=== PATIENT | female | born 1940 | race Caucasian/White ===

== ENCOUNTER 2016-12-06 08:00 | Outpatient (CLI) | payer MEDICARE, OTHER | END 2016-12-06 08:01 | disposition home or self-care (01) | DX: M85.88 Other specified disorders of bone density and structure, other site (principal); Z79.899 Other long term (current) drug therapy; Z79.52 Long term (current) use of systemic steroids ==

== ENCOUNTER 2016-12-06 08:03 | Outpatient (CLI) | payer MEDICARE, OTHER | END 2016-12-06 08:04 | disposition home or self-care (01) | DX: Z12.31 Encounter for screening mammogram for malignant neoplasm of breast (principal); Z80.3 Family history of malignant neoplasm of breast ==

== ENCOUNTER 2017-03-20 12:41 | Outpatient (CLI) | payer MEDICARE, OTHER | END 2017-03-20 12:42 | disposition home or self-care (01) | DX: M25.519 Pain in unspecified shoulder (principal); M06.4 Inflammatory polyarthropathy ==

== ENCOUNTER 2017-04-05 07:39 | Outpatient (CLI) | payer MEDICARE, OTHER ==
--- NOTE | 2017-04-05 11:35 | MRI Report ---
EXAM: LEFT SHOULDER MRI WITHOUT CONTRAST EXAM DATE: 04/05/2017 09:07 AM. CLINICAL HISTORY: Chronic left shoulder pain. Decreased range of motion. COMPARISON: None. TECHNIQUE: Multiplanar, multisequence T1-weighted and fluid-sensitive sequences of the shoulder witho ut contrast. Other: None. FINDINGS: Acromioclavicular Region: The acromion is type I. Mild acromioclavicular joint osteoarthritis. The co racoacromial and coracoclavicular ligaments are intact. Small amount fluid at the subacromial/subdelt oid bursa. Glenohumeral Region: No subluxation. No effusion or loose bodies. The articular cartilage is unremark able. The glenohumeral ligaments and joint capsule are unremarkable. Bone Marrow: No fracture, marrow edema or bone lesions. Labrum: There is a probable sub-labral foramen variant at the anterosuperior aspect of the labrum. Ot herwise, labrum is grossly unremarkable on this non-arthrographic exam. Musculature/Rotator Cuff: There is tendinosis at the anterior distal aspect of the supraspinatus tend on. The infraspinatus, teres minor, and subscapularis tendons are normal. No discrete rotator cuff te ar. No edema or fatty atrophy. Biceps Tendon: The long head of the biceps tendon and biceps fozia are intact. Other: The subcutaneous tissues are unremarkable. IMPRESSION: 1. Mild acromioclavicular joint osteoarthritis. Small amount of fluid at the subacromial/subdeltoid b ursa. 2. Supraspinatus tendinosis. No discrete rotator cuff tear. [facility]CUL[facility] SECTION Referring Provider Line: [phone] SITE ID: [id number]
--- NOTE | 2017-04-05 12:13 | MRI Report ---
EXAM: RIGHT SHOULDER MRI WITHOUT CONTRAST EXAM DATE: 04/05/2017 08:42 AM. CLINICAL HISTORY: Bilateral shoulder pain since 2008. COMPARISON: 03/20/2017 radiograph. TECHNIQUE: Multiplanar, multisequence T1-weighted and fluid-sensitive sequences of the shoulder witho ut contrast. Other: None. FINDINGS: Acromioclavicular Region: The acromion is type II. Mild acromioclavicular osteoarthropathy is present . The coracoacromial and coracoclavicular ligaments are intact. A mild amount of fluid is in the suba cromial/subdeltoid bursa. Glenohumeral Region: No subluxation. No effusion or loose bodies. The articular cartilage is unremark able. The glenohumeral ligaments and joint capsule are unremarkable. Bone Marrow: No fracture, marrow edema or bone lesions. Labrum: The labrum is unremarkable on this nonarthrographic study. Musculature/Rotator Cuff: The subscapularis, infraspinatus, and teres minor tendons are intact. There is mild supraspinatus tendinosis. No edema or fatty atrophy. Biceps Tendon: The long head of the biceps tendon and biceps fozia are intact. Other: The subcutaneous tissues are unremarkable. IMPRESSION: 1. Mild acromioclavicular osteoarthropathy. 2. Mild subacromial/subdeltoid bursitis. 3. Mild supraspinatus tendinosis. [facility]CULOSKE[facility] SECTION Referring Provider Line: [phone] SITE ID: [id number]
== END 2017-04-05 07:40 | disposition home or self-care (01) ==
LOC: DI 07:39
PROVIDERS: ATTEND Internal Medicine Rheumatology
DX: M19.012 Primary osteoarthritis, left shoulder (principal); M19.011 Primary osteoarthritis, right shoulder; M75.51 Bursitis of right shoulder; M67.911 Unspecified disorder of synovium and tendon, right shoulder; M67.912 Unspecified disorder of synovium and tendon, left shoulder

== ENCOUNTER 2017-05-09 09:50 | Outpatient (CLI) | payer MEDICARE, OTHER | END 2017-05-09 09:51 | disposition home or self-care (01) | LOC: LAB.R 09:50 | PROVIDERS: ATTEND Internal Medicine | DX: N39.0 Urinary tract infection, site not specified (principal); R82.5 Elevated urine levels of drugs, medicaments and biological substances; R30.0 Dysuria | CPT/HCPCS: 87077; 87086 ==

== ENCOUNTER 2017-05-21 16:00 | Outpatient (CLI) | payer MEDICARE, OTHER | END 2017-05-21 23:59 | disposition home or self-care (01) | LOC: LAB.R 16:00 | PROVIDERS: ATTEND Nurse Practitioner Primary Care | DX: N39.0 Urinary tract infection, site not specified (principal) | CPT/HCPCS: 87086 ==

== ENCOUNTER 2017-05-24 08:00 | Outpatient (CLI) | payer MEDICARE, OTHER | END 2017-05-24 08:01 | disposition home or self-care (01) | LOC: LAB.R 08:00 | PROVIDERS: ATTEND Nurse Practitioner Primary Care | DX: N39.0 Urinary tract infection, site not specified (principal) | CPT/HCPCS: 87077; 87086 ==

== ENCOUNTER 2017-06-03 14:37 | Outpatient (CLI) | payer MEDICARE, OTHER | END 2017-06-03 14:38 | disposition home or self-care (01) | LOC: LAB 14:37 | PROVIDERS: ATTEND Internal Medicine | DX: N39.0 Urinary tract infection, site not specified (principal) | CPT/HCPCS: 87086 ==

== ENCOUNTER 2017-06-11 09:45 | Outpatient (CLI) | payer MEDICARE, OTHER ==
[2017-06-11 18:14] LABS: BILIRUBIN,URINE NEGATIVE (NEGATIVE)
[2017-06-11 18:16] LABS: UA CHARGE (STRIP ONLY) YES; UR CULTURE IF IND NOT INDICATED
[2017-06-11 18:17] LABS: BASOPHILS % (AUTO) 0.4 %; EOSINOPHILS % (AUTO) 0.4 %; HCT - HEMATOCRIT 34.7 % (37.0-47.0); HGB - HEMOGLOBIN 11.6 g/dL (12.0-16.0); LYMPHOCYTES # (AUTO) 0.7 10^3/uL (1.5-3.5); LYMPHOCYTES % (AUTO) 8.8 %; MEAN CORPUSCULAR HEMOGLOBIN 32.8 pg (27.0-31.0); MEAN CORPUSCULAR HGB CONC 33.5 g/dL (32.0-36.0); MEAN PLATELET VOLUME 7.9 fL (7.9-10.8); MONOCYTES # (AUTO) 0.3 10^3/uL (0.0-1.0); MONOCYTES % (AUTO) 4.1 %; NEUTROPHILS # (AUTO) 6.9 10^3/uL (1.5-6.6); NEUTROPHILS % (AUTO) 86.3 %; RED BLOOD COUNT 3.54 10^6/uL (4.20-5.40); RED CELL DISTRIBUTION WIDTH 14.4 % (12.0-15.0)
[2017-06-11 18:18] LABS: ALBUMIN/GLOBULIN RATIO 1.6 (1.0-2.2); BILIRUBIN,TOTAL 0.4 mg/dL (0.2-1.0); BUN - BLOOD UREA NITROGEN 19 mg/dL (6-20); CALCIUM 9.3 mg/dL (8.5-10.3); CARBON DIOXIDE - CO2 28 mmol/L (21-32); CHLORIDE 103 mmol/L (101-111); CREATININE 0.7 mg/dL (0.4-1.0); GFR - MDRD 82 (>89); GLUCOSE 119 mg/dL (70-100); POTASSIUM 3.8 mmol/L (3.5-5.0); SODIUM 138 mmol/L (135-145); TOTAL PROTEIN 7.1 g/dL (6.7-8.2)
== END 2017-06-11 09:46 | disposition home or self-care (01) ==
LOC: LAB.R 09:45
PROVIDERS: ATTEND Nurse Practitioner Primary Care
DX: N39.0 Urinary tract infection, site not specified (principal); M06.4 Inflammatory polyarthropathy
CPT/HCPCS: 80053; 81001; 81003; 85025; 85651; 86140; 87086

== ENCOUNTER 2017-07-09 16:55 | Outpatient (CLI) | payer MEDICARE, OTHER ==
--- NOTE | 2017-07-10 10:06 | XRAY Report ---
THREE-VIEW RIGHT KNEE: 07/09/2017 CLINICAL INDICATION: Pain. FINDINGS: AP, lateral, sunrise views of the right knee demonstrate minimal osteoarthritis, with smal l osteophytes. There is no evidence of fracture or dislocation. No effusion is present. IMPRESSION: MINIMAL OSTEOARTHRITIS. JOB #: [id number] EXT JOB #:[id number]
== END 2017-07-09 16:56 | disposition home or self-care (01) ==
LOC: DI 16:55
PROVIDERS: ATTEND Internal Medicine
DX: M25.561 Pain in right knee (principal)

== ENCOUNTER 2017-07-25 08:00 | Outpatient (CLI) | payer MEDICARE, OTHER | END 2017-07-25 23:59 | disposition home or self-care (01) | LOC: LAB.R 08:00 | PROVIDERS: ATTEND Registered Nurse | DX: N32.81 Overactive bladder (principal); R82.99 Other abnormal findings in urine | CPT/HCPCS: 87086 ==

== ENCOUNTER 2017-08-16 18:29 | Emergency (ER) | payer MEDICARE, OTHER ==
--- NOTE | 2017-08-16 19:38 | ED Physician Documentation ---
PD HPI LOWER EXT INJURY - Stated complaint Stated Complaint: LEG PX - Chief complaint Chief Complaint: Ext Problem - History obtained from History obtained from: Patient - History of Present Illness PD HPI LOW EXT INJURY LOCATION: Right, Calf Type of injury: No: Fall, Twist Timing - onset: How many days ago (2) Timing - duration: Days (2) Timing - details: Gradual onset, Still present Worsened by: Moving, Palpating Associated symptoms: No: Weakness, Numbness, Swelling, Discolored Similar symptoms before: Has not had sx before Recently seen: Not recently seen Review of Systems Constitutional: denies: Fever, Chills Skin: denies: Rash, Lesions Neurologic: denies: Focal weakness, Numbness PD PAST MEDICAL HISTORY - Past Medical History Past Medical History: Yes Cardiovascular: Other Respiratory: None Endocrine/Autoimmune: HyPOthyroidism GI: None : Other HEENT: None Psych: None Musculoskeletal: Osteoarthritis Derm: None Other Past Medical History: microscopic colitis, heel spurs - Past Surgical History Past Surgical History: Yes General: Appendectomy /[employer]: Hysterectomy HEENT: Cataracts - Present Medications Home Medications: Ambulatory Orders Medication Instructions Recorded Confirmed Estradiol 0.5 mg PO DAILY 05/22/16 08/16/17 Levothyroxine [Synthroid] 75 mcg PO QDAC 05/22/16 08/16/17 Nitrofurantoin [Macrodantin] 50 mg PO DAILY 05/22/16 08/16/17 Prednisone 3 mg PO DAILY 05/22/16 08/16/17 Sulfasalazine [Sulfazine] 1,500 mg PO BID 05/22/16 08/16/17 Oxybutynin [Ditropan] 5 mg PO BID 08/16/17 08/16/17 - Allergies Allergies/Adverse Reactions: Allergies Allergy/AdvReac Type Severity Reaction Status Date / Time codeine Allergy Nausea Verified 08/16/17 18:38 metoclopramide HCl * Allergy Nausea Verified 08/16/17 18:38 [From Reglan] prochlorperazine Allergy Nausea Verified 08/16/17 18:38 [From Compazine] prochlorperazine edisylate * Allergy Nausea Verified 08/16/17 18:38 [From Compazine] prochlorperazine maleate * Allergy Nausea Verified 08/16/17 18:38 [From Compazine] Sugars, Metabolically Active AdvReac Headache Verified 08/16/17 18:38 - Social History Does the pt smoke?: No Smoking Status: Never smoker Does the pt drink ETOH?: No Does the pt have substance abuse?: No - Immunizations Immunizations are current?: Yes PD ED PE NORMAL - Vitals Vital signs reviewed: Yes - General General: Alert and oriented X 3, No acute distress, Well developed/nourished - Cardiac Cardiac: No murmur - Respiratory Respiratory: No respiratory distress, Clear bilaterally - Derm Derm: Normal color, Warm and dry, No rash - Extremities Extremities: No edema, Other (right upper calf with tender spot focally without swelling. Not tender at the surface. ) - Neuro Neuro: No motor deficit, No sensory deficit Results - Vitals Vitals: Oxygen O2 Source Room air - Rads (name of study) duplex venous Radiology: Prelim report reviewed (negative for DVT) PD MEDICAL DECISION MAKING - ED course Complexity details: reviewed results, considered differential, d/w patient Departure - Departure Disposition: 01 Home, Self Care Clinical Impression: Pain of right calf Clinical Impression: (Ruled Out): Deep vein thrombosis Condition: Stable Record reviewed to determine appropriate education?: Yes Follow-Up: Gage Menjivar MD [Primary Care Provider] - Comments: The ultrasound does not show any signs of blood clots (DVT). They do see a small pocket of free fluid upper calf/ lower right knee, which could be consistent with a small area of blood or could also come from a small cyst breaking open (Snyder's cyst). These would both hurt back calf for a few days with slow improvement over that time. Tylenol or Ibuprofen as needed for pains. Activity as able based on comfort. Discharge Date/Time: 08/16/17 21:50
[2017-08-16] MEDS ORDERED: ACETAMINOPHEN 325 MG TABLET PO STA (20:29)
[2017-08-16] MEDS ORDERED: ACETAMINOPHEN 325 MG TABLET PO ONE (20:41)
[2017-08-16 21:30] VITALS: BP 156/75
[2017-08-16] MEDS ORDERED: HYDROcod/ACET 5/325 Prepack 6 PO ONE ×2 (21:40→21:51)
--- NOTE | 2017-08-16 21:45 | Ultrasound Preliminary Report ---
Exam: US DUPLEX EXT VEINS RIGHT IMPRESSION: Negative for deep venous thrombosis in the right lower extremity. [facility] SITE ID: [id number]
--- NOTE | 2017-08-16 21:47 | Ultrasound Report ---
EXAM: RIGHT LOWER EXTREMITY VENOUS ULTRASOUND EXAM DATE: 08/16/2017 09:32 PM. CLINICAL HISTORY: Right calf pain with walking for few days. COMPARISON: None. TECHNIQUE: Real-time sonographic vascular imaging was performed by the cleaning porter through the lower extremity utilizing both color-flow and Doppler spectral analysis. Multiple telephone service representative static siddharth ges were saved for review. FINDINGS: Common Femoral Vein (CFV): Normal. CFV-GSV Junction: Normal. Profunda Femoral Vein (PFV): Normal. Femoral Vein (FV) Prox: Normal. Femoral Vein (FV) Mid: Normal. Femoral Vein (FV) Dist: Normal. Popliteal Vein: Normal. Posterior Tibial Veins: Not well seen. No thrombus. Peroneal Veins: No thrombus. Not well seen. Other: None. IMPRESSION: Negative for deep venous thrombosis in the right lower extremity. [facility] Referring Provider Line: [phone] SITE ID: [id number]
== END 2017-08-16 21:50 | disposition home or self-care (01) ==
LOC: ED 18:29
DX: M79.661 Pain in right lower leg (principal); E03.9 Hypothyroidism, unspecified
CPT/HCPCS: 93971; 99283; A9270

== ENCOUNTER 2017-08-30 11:30 | Outpatient (CLI) | payer MEDICARE, OTHER ==
[2017-08-30 12:11] LABS: URIC ACID 4.6 mg/dL (2.6-7.2)
== END 2017-08-30 11:31 | disposition home or self-care (01) ==
LOC: LAB 11:30
PROVIDERS: ATTEND Orthopaedic Surgery
DX: M19.011 Primary osteoarthritis, right shoulder (principal); M25.561 Pain in right knee
CPT/HCPCS: 36415; 84550; 85651; 86038; 86140; 86430

== ENCOUNTER 2017-09-24 11:17 | Outpatient (CLI) | payer MEDICARE, OTHER ==
[2017-09-24 11:58] LABS: ALBUMIN/GLOBULIN RATIO 1.5 (1.0-2.2); BILIRUBIN,TOTAL 0.6 mg/dL (0.2-1.0); CALCIUM 9.6 mg/dL (8.5-10.3); CREATININE 0.7 mg/dL (0.4-1.0); POTASSIUM 3.6 mmol/L (3.5-5.0); TOTAL PROTEIN 7.2 g/dL (6.7-8.2)
== END 2017-09-24 11:18 | disposition home or self-care (01) ==
LOC: LAB 11:17
PROVIDERS: ATTEND Registered Nurse
DX: Z13.89 Encounter for screening for other disorder (principal)
CPT/HCPCS: 36415; 80053

== ENCOUNTER 2017-10-29 08:00 | Outpatient (CLI) | payer MEDICARE, OTHER ==
[2017-10-29 17:57] LABS: BILIRUBIN,URINE NEGATIVE (NEGATIVE); GLUCOSE, URINE (UA) NEGATIVE (NEGATIVE); KETONES,URINE (UA) NEGATIVE (NEGATIVE); LEUKOCYTE ESTERASE, URINE NEGATIVE (NEGATIVE); NITRITE,URINE NEGATIVE (NEGATIVE); OCCULT BLOOD,URINE NEGATIVE (NEGATIVE); PROTEIN,URINE NEGATIVE (NEGATIVE); UROBILINOGEN,URINE 0.2 (NORMAL) E.U./dL (NORMAL)
[2017-10-29 18:00] LABS: BASOPHILS % (AUTO) 0.7 %; EOSINOPHILS # (AUTO) 0.1 10^3/uL (0.0-0.7); EOSINOPHILS % (AUTO) 1.4 %; HGB - HEMOGLOBIN 11.2 g/dL (12.0-16.0); LYMPHOCYTES % (AUTO) 16.9 %; MEAN CORPUSCULAR HEMOGLOBIN 32.1 pg (27.0-31.0); MEAN CORPUSCULAR HGB CONC 32.4 g/dL (32.0-36.0); MEAN PLATELET VOLUME 8.2 fL (7.9-10.8); MONOCYTES # (AUTO) 0.4 10^3/uL (0.0-1.0); MONOCYTES % (AUTO) 7.3 %; NEUTROPHILS # (AUTO) 4.3 10^3/uL (1.5-6.6); NEUTROPHILS % (AUTO) 73.7 %; PLT - PLATELET COUNT 230 10^3/uL (130-450); RED CELL DISTRIBUTION WIDTH 15.1 % (12.0-15.0); WHITE BLOOD COUNT 5.9 x10^3/uL (4.8-10.8)
[2017-10-29 18:03] LABS: CLARITY,URINE CLEAR (CLEAR)
[2017-10-29 18:05] LABS: BACTERIA,URINE Moderate /HPF (None Seen); RBC,URINE None Seen /HPF (0-5); SQUAMOUS EPITHELIAL CELL,UR MOD Squamous (<= Few)
[2017-10-31 09:42] LABS: COMPLEMENT COMPONENT C3C 155 mg/dL (90-180); COMPLEMENT COMPONENT C4C 31 mg/dL (16-47)
[2017-10-31 14:10] LABS: ANA SCREEN NEGATIVE (NEGATIVE)
== END 2017-10-29 08:01 | disposition home or self-care (01) ==
LOC: LAB.R 08:00
PROVIDERS: ATTEND Internal Medicine Rheumatology
DX: M25.50 Pain in unspecified joint (principal); M06.4 Inflammatory polyarthropathy; R76.8 Other specified abnormal immunological findings in serum
CPT/HCPCS: 81001; 85025; 85651; 86038; 86140; 86160

== ENCOUNTER 2017-10-29 08:00 | Outpatient (CLI) | payer MEDICARE, OTHER | END 2017-10-29 08:01 | disposition home or self-care (01) | LOC: LAB.R 08:00 | PROVIDERS: ATTEND Internal Medicine | DX: E03.9 Hypothyroidism, unspecified (principal); M81.8 Other osteoporosis without current pathological fracture; Z79.899 Other long term (current) drug therapy | CPT/HCPCS: 82306; 84443 ==

== ENCOUNTER 2017-11-06 10:45 | Outpatient (CLI) | payer MEDICARE, OTHER ==
--- NOTE | 2017-11-07 10:48 | XRAY Report ---
DATE OF SERVICE: 11/06/2017 CERVICAL SPINE: 11/06/2017 COMPARISON: None. INDICATION: Degenerative joint disease of the cervical spine. TECHNIQUE: Five views of the cervical spine. FINDINGS: There are moderate anterior osteophytes of the cervical spine. There is no appreciable disk space narrowing. The alignment appears normal. There is no prevertebral soft tissue swelling. The lateral masses are incompletely imaged, but appear grossly symmetric. The left C4-C5 and C5-C6 bony neural foramina appear mildly narrowed. Mild to moderate narrowing of the right C4-C5 bony neural foramen is implied, but the other bony neural foramina on the right are incompletely imaged due to patient rotation. 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 TD: 11/06/2017 14:18 LAXMI
== END 2017-11-06 10:46 | disposition home or self-care (01) ==
LOC: DI 10:45
PROVIDERS: ATTEND Internal Medicine
DX: M43.02 Spondylolysis, cervical region (principal)
CPT/HCPCS: 72050

== ENCOUNTER 2017-12-09 09:36 | Outpatient (CLI) | payer MEDICARE, OTHER ==
--- NOTE | 2017-12-10 17:41 | Mammography Report ---
DATE OF SERVICE: 12/09/2017 DIGITAL SCREENING MAMMOGRAM: 12/09/2017 CLINICAL INDICATION: A 77-year-old with family history of breast cancer for screening. COMPARISON: 12/2016, 12/2015, 12/2014, 11/2013, 11/2012, 11/2011, 11/2010, 11/2009. TECHNIQUE: Routine CC and MLO projections were obtained of the breasts. FINDINGS: Scattered fibroglandular tissue is present within the breasts. There are no dominant masses, suspicious microcalcifications, or secondary signs of malignancy. In comparison to the previous studies, there are no significant changes. ASSESSMENT: NO MAMMOGRAPHIC EVIDENCE OF MALIGNANCY. NO SIGNIFICANT INTERVAL CHANGES. RECOMMENDATION: Screening mammography is recommended annually. BIRADS category 1 - negative. STANDARD QUALIFYING STATEMENTS: 1. This examination was reviewed with the aid of Computed-Aided Detection (CAD). 2. A negative or benign imaging report should not delay biopsy if clinically suspicious findings are present. Consider surgical consultation if warranted. More than 5% of cancers are not identified by imaging. 3. Dense breasts may obscure an underlying neoplasm. TD: 12/10/2017 17:41
== END 2017-12-09 09:37 | disposition home or self-care (01) ==
LOC: DI 09:36
PROVIDERS: ATTEND Internal Medicine
DX: Z12.31 Encounter for screening mammogram for malignant neoplasm of breast (principal); Z80.3 Family history of malignant neoplasm of breast
CPT/HCPCS: 77067

== ENCOUNTER 2018-02-19 09:59 | Outpatient (CLI) | payer MEDICARE, OTHER ==
[2018-02-19 13:19] LABS: BASOPHILS % (AUTO) 0.5 %; EOSINOPHILS # (AUTO) 0.1 10^3/uL (0.0-0.7); EOSINOPHILS % (AUTO) 0.9 %; HGB - HEMOGLOBIN 11.9 g/dL (12.0-16.0); LYMPHOCYTES # (AUTO) 1.1 10^3/uL (1.5-3.5); LYMPHOCYTES % (AUTO) 17.6 %; MEAN CORPUSCULAR HEMOGLOBIN 31.5 pg (27.0-31.0); MEAN CORPUSCULAR HGB CONC 33.5 g/dL (32.0-36.0); MEAN PLATELET VOLUME 8.1 fL (7.9-10.8); MONOCYTES # (AUTO) 0.5 10^3/uL (0.0-1.0); MONOCYTES % (AUTO) 8.7 %; NEUTROPHILS # (AUTO) 4.5 10^3/uL (1.5-6.6); NEUTROPHILS % (AUTO) 72.3 %; PLT - PLATELET COUNT 236 10^3/uL (130-450); RED BLOOD COUNT 3.77 10^6/uL (4.20-5.40); RED CELL DISTRIBUTION WIDTH 14.7 % (12.0-15.0); WHITE BLOOD COUNT 6.3 x10^3/uL (4.8-10.8)
[2018-02-19 13:37] LABS: ALBUMIN 4.6 g/dL (3.2-5.5); ALBUMIN/GLOBULIN RATIO 1.6 (1.0-2.2); BILIRUBIN,TOTAL 0.5 mg/dL (0.2-1.0); CALCIUM 9.6 mg/dL (8.5-10.3); CREATININE 0.8 mg/dL (0.4-1.0); CRP - C-REACTIVE PROTEIN 1.6 mg/dL (0-1.0); TOTAL PROTEIN 7.4 g/dL (6.7-8.2)
== END 2018-02-19 10:00 | disposition home or self-care (01) ==
LOC: LAB.WCP 09:59
PROVIDERS: ATTEND Internal Medicine Rheumatology
DX: M25.50 Pain in unspecified joint (principal)
CPT/HCPCS: 36415; 80053; 85025; 85651; 86140

== ENCOUNTER 2018-04-04 16:06 | Emergency (ER) | payer MEDICARE, OTHER ==
[2018-04-04] MEDS ORDERED: SODIUM CHLORIDE 0.9% 1,000 ML IV ONE (16:14)
[2018-04-04] MEDS ORDERED: ONDANSETRON 4 MG/2 ML VIAL IVP STA (16:14)
[2018-04-04 16:33] LABS: BASOPHILS # (AUTO) 0.1 10^3/uL (0.0-0.1); BASOPHILS % (AUTO) 0.6 %; EOSINOPHILS % (AUTO) 0.2 %; LYMPHOCYTES # (AUTO) 0.4 10^3/uL (1.5-3.5); LYMPHOCYTES % (AUTO) 2.7 %; MEAN CORPUSCULAR HEMOGLOBIN 31.3 pg (27.0-31.0); MEAN CORPUSCULAR HGB CONC 32.5 g/dL (32.0-36.0); MEAN CORPUSCULAR VOLUME 96.2 fL (81.0-99.0); MEAN PLATELET VOLUME 7.1 fL (7.9-10.8); MONOCYTES # (AUTO) 0.6 10^3/uL (0.0-1.0); MONOCYTES % (AUTO) 4.3 %; NEUTROPHILS # (AUTO) 12.6 10^3/uL (1.5-6.6); NEUTROPHILS % (AUTO) 92.2 %; PLT - PLATELET COUNT 218 10^3/uL (130-450); RED BLOOD COUNT 3.83 10^6/uL (4.20-5.40); RED CELL DISTRIBUTION WIDTH 15.2 % (12.0-15.0); WHITE BLOOD COUNT 13.6 x10^3/uL (4.8-10.8)
[2018-04-04] MEDS: SODIUM CHLORIDE 0.9% 1,000 ML IV ONE ×2 (16:34→17:08)
[2018-04-04 16:45] LABS: ALBUMIN 4.8 g/dL (3.2-5.5); ALBUMIN/GLOBULIN RATIO 1.7 (1.0-2.2); CALCIUM 9.3 mg/dL (8.5-10.3); CREATININE 0.8 mg/dL (0.4-1.0); TOTAL PROTEIN 7.6 g/dL (6.7-8.2)
--- NOTE | 2018-04-04 16:51 | ED Physician Documentation ---
History of Present Illness - Stated complaint Stated Complaint: VOMITING - Chief complaint Chief Complaint: Abd Pain - History obtained from History obtained from: Patient - History of Present Illness Timing: Today Pain level max: 0 Pain level now: 0 - Additonal information Additional information: Patient is a 77-year-old woman who was getting ready to eat lunch today when she ate some canned pears. Approximately 20 minutes later she began vomiting and has vomited 8 times since that time. Is also had loose stool. No fevers. No abdominal pain. Has not taken anything for this. Nothing makes it better. Worse when she tries to eat or drink anything. Has never had bowel obstructions. Currently has no pain. Patient states she has chronic tachycardia of unclear etiology Review of Systems Ten Systems: 10 systems reviewed and negative Constitutional: denies: Fever, Chills Ears: denies: Ear pain Nose: denies: Rhinorrhea / runny nose, Congestion Throat: denies: Sore throat Cardiac: denies: Chest pain / pressure Respiratory: denies: Dyspnea, Cough, Wheezing GI: reports: Nausea, Vomiting. denies: Abdominal Pain, Hematemesis, Bloody / black stool : denies: Dysuria Skin: denies: Rash Musculoskeletal: denies: Neck pain, Back pain Neurologic: denies: Headache PD PAST MEDICAL HISTORY - Past Medical History Past Medical History: Yes Cardiovascular: Other Respiratory: None Endocrine/Autoimmune: HyPOthyroidism GI: None : Other HEENT: None Psych: None Musculoskeletal: Osteoarthritis Derm: None - Past Surgical History Past Surgical History: Yes General: Appendectomy /[employer]: Hysterectomy HEENT: Cataracts - Present Medications Home Medications: Ambulatory Orders Medication Instructions Recorded Confirmed Estradiol 0.5 mg PO DAILY 05/22/16 08/16/17 Levothyroxine [Synthroid] 75 mcg PO QDAC 05/22/16 08/16/17 Nitrofurantoin [Macrodantin] 50 mg PO DAILY 05/22/16 08/16/17 Prednisone 3 mg PO DAILY 05/22/16 08/16/17 Sulfasalazine [Sulfazine] 1,500 mg PO BID 05/22/16 08/16/17 Oxybutynin [Ditropan] 5 mg PO BID 08/16/17 08/16/17 Ondansetron Odt [Zofran] 4 mg TL Q6H PRN #10 tablet 04/04/18 - Allergies Allergies/Adverse Reactions: Allergies Allergy/AdvReac Type Severity Reaction Status Date / Time codeine Allergy Nausea Verified 04/04/18 16:12 metoclopramide HCl * Allergy Nausea Verified 04/04/18 16:12 [From Reglan] prochlorperazine Allergy Nausea Verified 04/04/18 16:12 [From Compazine] prochlorperazine edisylate * Allergy Nausea Verified 04/04/18 16:12 [From Compazine] prochlorperazine maleate * Allergy Nausea Verified 04/04/18 16:12 [From Compazine] Sugars, Metabolically Active AdvReac Headache Verified 04/04/18 16:12 - Social History Does the pt smoke?: No Smoking Status: Never smoker Does the pt drink ETOH?: No Does the pt have substance abuse?: No - Immunizations Immunizations are current?: Yes PD ED PE NORMAL - Vitals Vital signs reviewed: Yes - General General: Alert and oriented X 3, No acute distress, Well developed/nourished - HEENT HEENT: PERRL, Moist mucous membranes - Neck Neck: Supple, no meningeal sign - Cardiac Cardiac: RRR, Strong equal pulses - Respiratory Respiratory: No respiratory distress, Clear bilaterally - Abdomen Abdomen: Normal bowel sounds, Soft, Non tender, Non distended - Derm Derm: Warm and dry, No rash - Extremities Extremities: No edema - Neuro Neuro: Alert and oriented X 3 - Psych Psych: Normal mood, Normal affect Results - Vitals Vitals: Vital Signs - 24 hr 04/04/18 04/04/18 16:10 17:26 Temperature 35.7 C L Heart Rate 134 H 92 Respiratory 22 16 Rate Blood Pressure 171/87 H 177/88 H O2 Saturation 99 98 Oxygen O2 Source Room air - Labs Labs: Laboratory Tests 04/04/18 04/04/18 04/04/18 16:24 16:24 17:19 WBC 13.6 H RBC 3.83 L Hgb 12.0 Hct 36.9 L MCV 96.2 MCH 31.3 H MCHC 32.5 RDW 15.2 H Plt Count 218 MPV 7.1 L Neut # (Auto) 12.6 H Lymph # (Auto) 0.4 L [place] # (Auto) 0.6 Eos # (Auto) 0.0 Baso # (Auto) 0.1 Absolute Nucleated RBC 0.00 Nucleated RBC % 0.0 Sodium 136 Potassium 3.4 L Chloride 100 L Carbon Dioxide 24 Anion Gap 12.0 BUN 24 H Creatinine 0.8 Estimated GFR (MDRD) 70 L Glucose 153 H Calcium 9.3 Total Bilirubin 1.0 AST 31 ALT 24 Alkaline Phosphatase 78 Total Protein 7.6 Albumin 4.8 Globulin 2.8 Albumin/Globulin Ratio 1.7 Lipase 36 Urine Color YELLOW Urine Clarity CLEAR Urine pH 5.5 Ur Specific [place] 1.020 Urine Protein NEGATIVE Urine Glucose (UA) NEGATIVE Urine Ketones 15 H Urine Occult Blood NEGATIVE Urine Nitrite NEGATIVE Urine Bilirubin NEGATIVE Urine Urobilinogen 0.2 (NORMAL) Ur Leukocyte Esterase NEGATIVE Ur Microscopic Review NOT INDICATED Urine Culture Comments NOT INDICATED PD MEDICAL DECISION MAKING - ED course Complexity details: reviewed results, re-evaluated patient, considered differential, d/w patient ED course: Patient presents to the emergency department with vomiting after eating pears today. She was given Zofran and IV fluids. Feels significantly improved. Tolerating p.o. without difficulty. We will continue supportive care and follow -up with her doctor. No evidence of bowel obstruction. No evidence of peritonitis. She is very well-appearing, nontoxic. Patient counseled regarding signs and symptoms for which I believe and urgent re-evaluation would be necessary. Patient with good understanding of and agreement to plan and is comfortable going home at this time This document was made in part using voice recognition software. While efforts are made to proofread this document, sound alike and grammatical errors may occur. Departure - Departure Disposition: 01 Home, Self Care Clinical Impression: Vomiting Qualifiers: Vomiting type: unspecified Vomiting Intractability: non-intractable Nausea presence: without nausea Qualified Code(s): R11.11 - Vomiting without nausea Condition: Good Instructions: ED Nausea Vomiting Follow-Up: Gage Menjivar MD [Primary Care Provider] - Within 1 week Prescriptions: Ondansetron Odt [Zofran] 4 mg TL Q6H PRN #10 tablet PRN Reason: Nausea / Vomiting Comments: Return if you worsen. Discharge Date/Time: 04/04/18 18:03
[2018-04-04 17:27] VITALS: BP 177/88
[2018-04-04 17:33] LABS: BILIRUBIN,URINE NEGATIVE (NEGATIVE); GLUCOSE, URINE (UA) NEGATIVE (NEGATIVE); KETONES,URINE (UA) 15 mg/dL (NEGATIVE); LEUKOCYTE ESTERASE, URINE NEGATIVE (NEGATIVE); NITRITE,URINE NEGATIVE (NEGATIVE); OCCULT BLOOD,URINE NEGATIVE (NEGATIVE); PH,URINE 5.5 PH (5.0-7.5); PROTEIN,URINE NEGATIVE (NEGATIVE); UROBILINOGEN,URINE 0.2 (NORMAL) E.U./dL (NORMAL)
[2018-04-04 17:35] LABS: CLARITY,URINE CLEAR (CLEAR)
== END 2018-04-04 18:03 | disposition home or self-care (01) ==
LOC: ED 16:06
DX: R11.11 Vomiting without nausea (principal)
CPT/HCPCS: 36415; 80053; 81001; 81003; 83690; 85025; 87086; 96374; 99283; 99284

== ENCOUNTER 2018-05-28 10:46 | Outpatient (CLI) | payer MEDICARE, OTHER ==
[2018-05-28 12:35] LABS: BASOPHILS % (AUTO) 0.8 %; EOSINOPHILS # (AUTO) 0.1 10^3/uL (0.0-0.7); EOSINOPHILS % (AUTO) 0.9 %; HGB - HEMOGLOBIN 12.1 g/dL (12.0-16.0); LYMPHOCYTES # (AUTO) 1.1 10^3/uL (1.5-3.5); LYMPHOCYTES % (AUTO) 18.3 %; MEAN CORPUSCULAR HEMOGLOBIN 32.6 pg (27.0-31.0); MEAN CORPUSCULAR HGB CONC 33.2 g/dL (32.0-36.0); MEAN CORPUSCULAR VOLUME 98.3 fL (81.0-99.0); MONOCYTES # (AUTO) 0.4 10^3/uL (0.0-1.0); MONOCYTES % (AUTO) 7.2 %; NEUTROPHILS # (AUTO) 4.3 10^3/uL (1.5-6.6); NEUTROPHILS % (AUTO) 72.8 %; PLT - PLATELET COUNT 240 10^3/uL (130-450); RED BLOOD COUNT 3.69 10^6/uL (4.20-5.40); RED CELL DISTRIBUTION WIDTH 14.3 % (12.0-15.0); WHITE BLOOD COUNT 5.9 x10^3/uL (4.8-10.8)
[2018-05-28 14:31] LABS: ALBUMIN 4.3 g/dL (3.2-5.5); ALBUMIN/GLOBULIN RATIO 1.4 (1.0-2.2); ALKALINE PHOSPHATASE 83 IU/L (42-121); ALT ALANINE AMINOTRANSFERASE 25 IU/L (10-60); AST ASPARTATE AMINOTRANSFERASE 26 IU/L (10-42); BILIRUBIN,TOTAL 0.6 mg/dL (0.2-1.0); BUN - BLOOD UREA NITROGEN 11 mg/dL (6-20); CALCIUM 9.3 mg/dL (8.5-10.3); CARBON DIOXIDE - CO2 27 mmol/L (21-32); CHLORIDE 101 mmol/L (101-111); CREATININE 0.8 mg/dL (0.4-1.0); GFR - MDRD 70 (>89); GLUCOSE 132 mg/dL (70-100); SODIUM 137 mmol/L (135-145); TOTAL PROTEIN 7.3 g/dL (6.7-8.2)
[2018-05-28 14:32] LABS: CRP - C-REACTIVE PROTEIN < 1.0 mg/dL (0-1.0)
== END 2018-05-28 10:47 ==
LOC: LAB.WCP 10:46
PROVIDERS: ATTEND Internal Medicine Rheumatology
DX: M25.50 Pain in unspecified joint (principal); M06.4 Inflammatory polyarthropathy
CPT/HCPCS: 36415; 80053; 85025; 85651; 86140

== ENCOUNTER 2018-09-18 14:55 | Outpatient (CLI) | payer MEDICARE, OTHER ==
[2018-09-18 15:22] LABS: BASOPHILS % (AUTO) 0.5 %; EOSINOPHILS # (AUTO) 0.1 10^3/uL (0.0-0.7); EOSINOPHILS % (AUTO) 1.4 %; LYMPHOCYTES % (AUTO) 16.1 %; MEAN CORPUSCULAR HEMOGLOBIN 33.3 pg (27.0-31.0); MEAN CORPUSCULAR HGB CONC 34.8 g/dL (32.0-36.0); MEAN CORPUSCULAR VOLUME 95.5 fL (81.0-99.0); MEAN PLATELET VOLUME 7.5 fL (7.9-10.8); MONOCYTES # (AUTO) 0.5 10^3/uL (0.0-1.0); MONOCYTES % (AUTO) 8.5 %; NEUTROPHILS # (AUTO) 4.6 10^3/uL (1.5-6.6); NEUTROPHILS % (AUTO) 73.5 %; PLT - PLATELET COUNT 225 10^3/uL (130-450); RED CELL DISTRIBUTION WIDTH 14.4 % (12.0-15.0); WHITE BLOOD COUNT 6.2 x10^3/uL (4.8-10.8)
[2018-09-18 15:32] LABS: ALBUMIN 4.6 g/dL (3.2-5.5); ALBUMIN/GLOBULIN RATIO 1.6 (1.0-2.2); BILIRUBIN,TOTAL 0.6 mg/dL (0.2-1.0); CALCIUM 9.3 mg/dL (8.5-10.3); CREATININE 0.8 mg/dL (0.4-1.0); TOTAL PROTEIN 7.4 g/dL (6.7-8.2)
== END 2018-09-18 14:56 | disposition home or self-care (01) ==
LOC: LAB 14:55
PROVIDERS: ATTEND Internal Medicine Rheumatology
DX: M25.50 Pain in unspecified joint (principal)
CPT/HCPCS: 36415; 80053; 85025; 85651

== ENCOUNTER 2018-11-20 08:22 | Outpatient (CLI) | payer MEDICARE, OTHER ==
[2018-11-20 09:29] LABS: BASOPHILS % (AUTO) 0.7 %; EOSINOPHILS # (AUTO) 0.1 10^3/uL (0.0-0.7); EOSINOPHILS % (AUTO) 1.5 %; HGB - HEMOGLOBIN 12.1 g/dL (12.0-16.0); LYMPHOCYTES # (AUTO) 0.8 10^3/uL (1.5-3.5); LYMPHOCYTES % (AUTO) 15.7 %; MEAN CORPUSCULAR HEMOGLOBIN 32.1 pg (27.0-31.0); MEAN CORPUSCULAR HGB CONC 33.4 g/dL (32.0-36.0); MONOCYTES # (AUTO) 0.4 10^3/uL (0.0-1.0); MONOCYTES % (AUTO) 8.3 %; NEUTROPHILS # (AUTO) 3.6 10^3/uL (1.5-6.6); NEUTROPHILS % (AUTO) 73.8 %; PLT - PLATELET COUNT 227 10^3/uL (130-450); RED BLOOD COUNT 3.77 10^6/uL (4.20-5.40); RED CELL DISTRIBUTION WIDTH 14.4 % (12.0-15.0); WHITE BLOOD COUNT 4.9 x10^3/uL (4.8-10.8)
[2018-11-20 09:47] LABS: BILIRUBIN,URINE NEGATIVE (NEGATIVE); GLUCOSE, URINE (UA) NEGATIVE (NEGATIVE); KETONES,URINE (UA) NEGATIVE (NEGATIVE); LEUKOCYTE ESTERASE, URINE NEGATIVE (NEGATIVE); NITRITE,URINE NEGATIVE (NEGATIVE); OCCULT BLOOD,URINE NEGATIVE (NEGATIVE); PROTEIN,URINE NEGATIVE (NEGATIVE); UROBILINOGEN,URINE 0.2 (NORMAL) E.U./dL (NORMAL)
[2018-11-20 09:51] LABS: ALBUMIN 4.4 g/dL (3.2-5.5); ALBUMIN/GLOBULIN RATIO 1.6 (1.0-2.2); ALKALINE PHOSPHATASE 80 IU/L (42-121); ALT ALANINE AMINOTRANSFERASE 30 IU/L (10-60); AST ASPARTATE AMINOTRANSFERASE 30 IU/L (10-42); BILIRUBIN,TOTAL 0.6 mg/dL (0.2-1.0); BUN - BLOOD UREA NITROGEN 18 mg/dL (6-20); CALCIUM 9.3 mg/dL (8.5-10.3); CARBON DIOXIDE - CO2 26 mmol/L (21-32); CHLORIDE 103 mmol/L (101-111); CHOL/HDL RATIO 3.6 (<4.4); CHOLESTEROL 261 mg/dL; CREATININE 0.8 mg/dL (0.4-1.0); GFR - MDRD 70 (>89); GLUCOSE 92 mg/dL (70-100); HDL CHOLESTEROL 73 mg/dL; LDL CHOLESTEROL,CALCULATED 169 mg/dL; LDL/HDL RATIO 2.3 (<4.4); SODIUM 138 mmol/L (135-145); TOTAL PROTEIN 7.1 g/dL (6.7-8.2); VLDL CHOLESTEROL 19 mg/dL
[2018-11-20 09:56] LABS: BACTERIA,URINE Rare /HPF (None Seen); CLARITY,URINE CLEAR (CLEAR); RBC,URINE 0-5 /HPF (0-5); SQUAMOUS EPITHELIAL CELL,UR FEW Squamous (<= Few)
== END 2018-11-20 08:23 | disposition home or self-care (01) ==
LOC: LAB 08:22
PROVIDERS: ATTEND Internal Medicine Rheumatology
DX: I10 Essential (primary) hypertension (principal); L65.9 Nonscarring hair loss, unspecified; M06.4 Inflammatory polyarthropathy; E03.9 Hypothyroidism, unspecified; M81.8 Other osteoporosis without current pathological fracture; M25.50 Pain in unspecified joint; R76.8 Other specified abnormal immunological findings in serum
CPT/HCPCS: 36415; 80053; 80061; 81001; 83721; 84443; 85025; 85651; 86038

== ENCOUNTER 2018-12-17 14:34 | Outpatient (CLI) | payer MEDICARE, OTHER ==
--- NOTE | 2018-12-17 15:58 | DEXA Report ---
Reason: IDIOPATHIC OSTEOPOROSIS Procedure Date: 12/17/2018 Accession Number: [id number] / [id number] Procedure: DEX - Dexa Spine and/or Hip CPT Code: FULL RESULT: EXAM: Dexa Spine and/or Hip DATE: 12/17/2018 3:14 PM CLINICAL HISTORY: Postmenopausal, steroid use, on hormone replacement and thyroid therapy. TECHNIQUE: Dual energy x-ray absorptiometry (DXA) was performed on a [employer]. Regions measured are the AP Spine, femoral neck, and if needed forearm. COMPARISON: 12/06/2016 In accordance with the International Society for Clinical Densitometry (ISCD) guidelines, data from previous exams may be reanalyzed using current recommendations and techniques. This is done to allow a more accurate basis for comparison with the current study. FINDINGS: The data for the lumbar spine is as follows: BMD (g/cm/cm) T-SCORE Z-SCORE REGION L1 1.069 -0.5 1.2 L2 1.075 -1.0 0.7 L3 1.078 -1.0 0.7 L4 1.119 -0.7 1.1 TOTAL 1.086 -0.8 1.0 NOTE: All evaluable vertebrae are used for classification The data for the hip is as follows: BMD (g/cm/cm) T-SCORE Z-SCORE REGION Neck 0.895 -1.0 1.0 TOTAL 0.957 -0.4 1.4 NOTE: The femoral neck or total proximal femur, whichever is lowest, is used for classification. DXA RESULTS SUMMARY: Spine SCAN DATE AGE BMD CHANGE VS CHANGE VS PREVIOUS PREVIOUS % 12/17/2018 78 1.086 -0.010 -0.9 12/06/2016 76 1.096 * Denotes significant change at the 95% confidence level. Denotes dissimilar scan types or analysis methods. DXA RESULTS SUMMARY: Hip SCAN DATE AGE BMD CHANGE VS CHANGE VS PREVIOUS PREVIOUS % 12/17/2018 78 0.957 0.061 6.8* 12/06/2016 76 0.896 * Denotes significant change at the 95% confidence level. Denotes dissimilar scan types or analysis methods. IMPRESSION: THE WHO CLASSIFICATION BASED ON THE INTERNATIONAL REFERENCE STANDARD IS NORMAL. THE FRACTURE RISK IS NOT INCREASED. RECOMMENDATION: Patients with diagnosis of osteoporosis or osteopenia should have regular bone mineral density assessment. For those eligible for Medicare, routine testing is allowed once every 2 years. Testing frequency can be increased for patients who have rapidly progressing disease or for those who are receiving medical therapy to restore bone mass. COMMENT: World Health Organization (WHO) definitions for osteoporosis and osteopenia: NORMAL BMD: T-score at -1.0 or higher, fracture risk is low OSTEOPENIA BMD: T-score between -1.0 and -2.5, fracture risk is increased. OSTEOPOROSIS BMD: T-score at -2.5 or lower, fracture risk is high. National Osteoporosis Foundation recommends: 1. Obtain adequate dietary calcium (at least 1200 mg per day) and vitamin D (400-800 international units per day). 2. Participate, as appropriate, in regular weightbearing and muscle-strengthening exercise. 3. Avoid tobacco use and reduce alcohol and caffeine intake. 4. For more detailed information see the website at www.NOF.org.
== END 2018-12-17 14:35 | disposition home or self-care (01) ==
LOC: DI 14:34
PROVIDERS: ATTEND Internal Medicine
DX: M81.8 Other osteoporosis without current pathological fracture (principal); Z78.0 Asymptomatic menopausal state
CPT/HCPCS: 77080

== ENCOUNTER 2018-12-17 14:35 | Outpatient (CLI) | payer MEDICARE, OTHER ==
--- NOTE | 2018-12-17 17:06 | Mammography Report ---
Reason: SCREENING MAMMOGRAM Procedure Date: 12/17/2018 Accession Number: [id number] / [id number] Procedure: NILDA - Screening Mammo w/William CPT Code: FULL RESULT: EXAM: Screening Mammo w/William DATE: 12/17/2018 3:30 PM CLINICAL HISTORY: Routine screening TECHNIQUE: Bilateral CC and MLO views were obtained. COMPARISON: 12/09/2017, 12/06/2016, 12/13/2015, 12/07/2014 and 11/23/2013 FINDINGS: There are scattered fibroglandular densities. No significant interval change. No suspicious masses, clustered microcalcifications, or regions of architectural distortion are identified. IMPRESSION: Benign findings RECOMMENDATION: Routine annual screening unless otherwise clinically indicated. BIRADS CATEGORY 2: Benign findings STANDARD QUALIFYING STATEMENTS: 1. This examination was not reviewed with the aid of Computer-Aided Detection (CAD). 2. A negative or benign imaging report should not delay biopsy if clinically suspicious findings are present. Consider surgical consultation if warrented. More than 5% of cancers are not identified by imaging. 3. Dense breasts may obscure an underlying neoplasm. 4. This examination was reviewed with the aid of 3D breast imaging (tomosynthesis).
== END 2018-12-17 14:36 | disposition home or self-care (01) ==
LOC: DI 14:35
PROVIDERS: ATTEND Internal Medicine
DX: Z12.31 Encounter for screening mammogram for malignant neoplasm of breast (principal)
CPT/HCPCS: 77063; 77067

== ENCOUNTER 2018-12-31 09:28 | Outpatient (CLI) | payer MEDICARE, OTHER ==
[2018-12-31 14:32] LABS: ALT ALANINE AMINOTRANSFERASE 22 IU/L (10-60); AST ASPARTATE AMINOTRANSFERASE 24 IU/L (10-42); LDL CHOLESTEROL,DIRECT 71 mg/dL
== END 2018-12-31 23:59 | disposition home or self-care (01) ==
LOC: LAB.R 09:28
PROVIDERS: ATTEND Internal Medicine
DX: E78.5 Hyperlipidemia, unspecified (principal)
CPT/HCPCS: 83721; 84450; 84460

== ENCOUNTER 2019-05-04 14:28 | Outpatient (CLI) | payer MEDICARE, OTHER ==
[2019-05-04 15:15] LABS: ALBUMIN 4.3 g/dL (3.2-5.5); ALBUMIN/GLOBULIN RATIO 1.8 (1.0-2.2); BILIRUBIN,TOTAL 0.8 mg/dL (0.2-1.0); CALCIUM 8.9 mg/dL (8.5-10.3); CREATININE 0.7 mg/dL (0.4-1.0); TOTAL PROTEIN 6.7 g/dL (6.7-8.2)
[2019-05-04 15:18] LABS: BASOPHILS % (AUTO) 0.6 %; EOSINOPHILS # (AUTO) 0.1 10^3/uL (0.0-0.7); EOSINOPHILS % (AUTO) 0.8 %; LYMPHOCYTES # (AUTO) 0.7 10^3/uL (1.5-3.5); LYMPHOCYTES % (AUTO) 11.2 %; MEAN CORPUSCULAR HEMOGLOBIN 32.3 pg (27.0-31.0); MEAN CORPUSCULAR HGB CONC 32.9 g/dL (32.0-36.0); MEAN CORPUSCULAR VOLUME 97.9 fL (81.0-99.0); MEAN PLATELET VOLUME 9.7 fL (7.9-10.8); MONOCYTES # (AUTO) 0.4 10^3/uL (0.0-1.0); MONOCYTES % (AUTO) 5.8 %; NEUTROPHILS # (AUTO) 5.1 10^3/uL (1.5-6.6); NEUTROPHILS % (AUTO) 81.3 %; PLT - PLATELET COUNT 194 10^3/uL (130-450); RED BLOOD COUNT 3.41 10^6/uL (4.20-5.40); RED CELL DISTRIBUTION WIDTH 13.2 % (12.0-15.0); WHITE BLOOD COUNT 6.2 x10^3/uL (4.8-10.8)
[2019-05-04 15:19] LABS: BILIRUBIN,URINE NEGATIVE (NEGATIVE); GLUCOSE, URINE (UA) NEGATIVE (NEGATIVE); KETONES,URINE (UA) NEGATIVE (NEGATIVE); LEUKOCYTE ESTERASE, URINE NEGATIVE (NEGATIVE); NITRITE,URINE NEGATIVE (NEGATIVE); OCCULT BLOOD,URINE NEGATIVE (NEGATIVE); PH,URINE 6.5 PH (5.0-7.5); PROTEIN,URINE NEGATIVE (NEGATIVE); UROBILINOGEN,URINE 0.2 (NORMAL) E.U./dL (NORMAL)
[2019-05-04 15:29] LABS: BACTERIA,URINE None Seen /HPF (None Seen); CLARITY,URINE CLEAR (CLEAR); RBC,URINE None Seen /HPF (0-5); SQUAMOUS EPITHELIAL CELL,UR MOD Squamous (<= Few)
[2019-05-06 15:07] LABS: COMPLEMENT COMPONENT C3C 130 mg/dL (83-193); COMPLEMENT COMPONENT C4C 26 mg/dL (15-57)
== END 2019-05-04 14:29 | disposition home or self-care (01) ==
LOC: LAB 14:28
PROVIDERS: ATTEND Internal Medicine Rheumatology
DX: M06.4 Inflammatory polyarthropathy (principal); M25.50 Pain in unspecified joint; R76.8 Other specified abnormal immunological findings in serum
CPT/HCPCS: 36415; 80053; 81001; 85025; 85651; 86160

== ENCOUNTER 2019-05-14 13:25 | Outpatient (CLI) | payer MEDICARE, OTHER ==
[2019-05-14 13:43] LABS: BASOPHILS % (AUTO) 0.7 %; EOSINOPHILS # (AUTO) 0.1 10^3/uL (0.0-0.7); EOSINOPHILS % (AUTO) 1.7 %; HGB - HEMOGLOBIN 10.3 g/dL (12.0-16.0); LYMPHOCYTES # (AUTO) 1.1 10^3/uL (1.5-3.5); LYMPHOCYTES % (AUTO) 18.7 %; MEAN CORPUSCULAR HEMOGLOBIN 32.2 pg (27.0-31.0); MEAN CORPUSCULAR HGB CONC 32.5 g/dL (32.0-36.0); MEAN CORPUSCULAR VOLUME 99.1 fL (81.0-99.0); MEAN PLATELET VOLUME 9.2 fL (7.9-10.8); MONOCYTES # (AUTO) 0.5 10^3/uL (0.0-1.0); MONOCYTES % (AUTO) 9.1 %; NEUTROPHILS % (AUTO) 69.5 %; PLT - PLATELET COUNT 184 10^3/uL (130-450); RED CELL DISTRIBUTION WIDTH 13.2 % (12.0-15.0); WHITE BLOOD COUNT 5.7 x10^3/uL (4.8-10.8)
[2019-05-14 13:57] LABS: CHOL/HDL RATIO 3.2 (<4.4); CHOLESTEROL 208 mg/dL; HDL CHOLESTEROL 65 mg/dL; LDL CHOLESTEROL,CALCULATED 113 mg/dL; LDL/HDL RATIO 1.7 (<4.4); VLDL CHOLESTEROL 30 mg/dL
== END 2019-05-14 13:26 | disposition home or self-care (01) ==
LOC: LAB 13:25
PROVIDERS: ATTEND Internal Medicine
DX: E78.5 Hyperlipidemia, unspecified (principal); E03.9 Hypothyroidism, unspecified
CPT/HCPCS: 36415; 80061; 83721; 84443; 85025

== ENCOUNTER 2019-07-22 08:00 | Outpatient (CLI) | payer MEDICARE, OTHER ==
[2019-07-22 18:19] LABS: BASOPHILS % (AUTO) 0.3 %; EOSINOPHILS # (AUTO) 0.1 10^3/uL (0.0-0.7); HGB - HEMOGLOBIN 11.1 g/dL (12.0-16.0); LYMPHOCYTES # (AUTO) 0.9 10^3/uL (1.5-3.5); LYMPHOCYTES % (AUTO) 14.6 %; MEAN CORPUSCULAR HEMOGLOBIN 31.9 pg (27.0-31.0); MEAN CORPUSCULAR VOLUME 99.7 fL (81.0-99.0); MEAN PLATELET VOLUME 10.5 fL (7.9-10.8); MONOCYTES # (AUTO) 0.5 10^3/uL (0.0-1.0); MONOCYTES % (AUTO) 7.9 %; NEUTROPHILS # (AUTO) 4.7 10^3/uL (1.5-6.6); NEUTROPHILS % (AUTO) 75.7 %; PLT - PLATELET COUNT 211 10^3/uL (130-450); RED BLOOD COUNT 3.48 10^6/uL (4.20-5.40); RED CELL DISTRIBUTION WIDTH 14.2 % (12.0-15.0); WHITE BLOOD COUNT 6.2 x10^3/uL (4.8-10.8)
[2019-07-22 18:33] LABS: ALBUMIN 4.5 g/dL (3.2-5.5); ALBUMIN/GLOBULIN RATIO 1.8 (1.0-2.2); BILIRUBIN,TOTAL 0.6 mg/dL (0.2-1.0); CALCIUM 9.5 mg/dL (8.5-10.3); CREATININE 0.8 mg/dL (0.4-1.0)
[2019-07-22 19:01] LABS: RHEUMATOID FACTOR NEGATIVE (Negative)
== END 2019-07-22 23:59 | disposition home or self-care (01) ==
LOC: LAB.WCP 08:00
PROVIDERS: ATTEND Internal Medicine Rheumatology
DX: M15.4 Erosive (osteo)arthritis (principal); M06.4 Inflammatory polyarthropathy
CPT/HCPCS: 36415; 80053; 85025; 85651; 86200; 86430

== ENCOUNTER 2021-05-16 14:59 | Outpatient (CLI) | payer MEDICARE, OTHER ==
--- NOTE | 2021-05-17 08:30 | Ultrasound Report ---
PROCEDURE: Ext Limited Non Vascular INDICATIONS: PEA SIZED NODULE LEFT LOWER EXTREMITY TECHNIQUE: Real-time scanning was performed of the left anterior lower leg, with image documentation . COMPARISON: None. FINDINGS: Focused ultrasound examination at anterior proximal left lower leg at patient's reported area of palp able lump shows a heterogeneously hypoechoic and solid appearing nodule within subcutaneous soft tiss ue measures 4.2 x 3.3 x 4.2 mm in size. There is also a tiny cystic structure just inferior to the ab ove-mentioned nodule and measures approximately 3.5 x 1.8 x 3.7 mm in size. No internal vascularity a re seen in the above-mentioned nodules. IMPRESSION: 1. Tiny solid appearing nodule in anterior left proximal lower leg subcutaneous soft tissue and measu res 4.2 x 3.3 x 4.2 mm in size and show no internal vascularity. This is of indeterminate etiology ba sed ultrasound appearance. 2. Tiny cystic structure also seen in anterior proximal left lower leg subcutaneous soft tissue and m easures 3.5 x 1.8 x 3.7 mm in size. No internal vascularity is seen. Reviewed by: Xavier Tran MD on 05/17/2021 8:29 AM PDT Approved by: Xavier Tran MD on 05/17/2021 8:29 AM PDT Station ID: [id number]
== END 2021-05-16 15:00 | disposition home or self-care (01) ==
LOC: DI 14:59
PROVIDERS: ATTEND Internal Medicine
DX: R22.42 Localized swelling, mass and lump, left lower limb (principal)

== ENCOUNTER 2021-08-25 10:48 | Emergency (ER) | payer MEDICARE, OTHER ==
[2021-08-25 11:54] VITALS: BP 155/107
--- NOTE | 2021-08-25 13:03 | ED Physician Documentation ---
History of Present Illness - Stated complaint Stated Complaint: RT KNEE/LEG PX - Chief complaint Chief Complaint: Ext Problem - History obtained from History obtained from: Patient (80-year-old female presents with pain behind the right knee as well as tender varicose veins. She has had a number of varicose veins in the past but never had any tenderness, woke up today with a nodule tenderness over a vein in the back of her leg. 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 HEENT: Cataracts - Present Medications Home Medications: Ambulatory Orders Medication Instructions Recorded Confirmed Estradiol 0.5 mg PO DAILY 05/22/16 08/16/17 Levothyroxine [Synthroid] 75 mcg PO QDAC 05/22/16 08/16/17 Nitrofurantoin [Macrodantin] 50 mg PO DAILY 05/22/16 08/16/17 Sulfasalazine [Sulfazine] 1,500 mg PO BID 05/22/16 08/16/17 predniSONE [Prednisone] 3 mg PO DAILY 05/22/16 08/16/17 Oxybutynin [Ditropan] 5 mg PO BID 08/16/17 08/16/17 Ondansetron Odt [Zofran] 4 mg TL Q6H PRN #10 tablet 04/04/18 - Allergies Allergies/Adverse Reactions: Allergies Allergy/AdvReac Type Severity Reaction Status Date / Time codeine Allergy Nausea Verified 04/04/18 16:12 metoclopramide HCl * Allergy Nausea Verified 04/04/18 16:12 [From Reglan] prochlorperazine Allergy Nausea Verified 04/04/18 16:12 [From Compazine] prochlorperazine edisylate * Allergy Nausea Verified 04/04/18 16:12 [From Compazine] prochlorperazine maleate * Allergy Nausea Verified 04/04/18 16:12 [From Compazine] Sugars, Metabolically Active AdvReac Headache Verified 04/04/18 16:12 - Social History Does the pt smoke?: No Smoking Status: Never smoker Does the pt drink ETOH?: No Does the pt have substance abuse?: No - Immunizations Immunizations are current?: Yes PD ED PE NORMAL - Vitals Vital signs reviewed: Yes - General General: Alert and oriented X 3, No acute distress, Well developed/nourished - HEENT HEENT: Atraumatic, Pharynx benign - Neck Neck: Supple, no meningeal sign, No JVD - Cardiac Cardiac: RRR, No murmur - Respiratory Respiratory: No respiratory distress, Clear bilaterally - Abdomen Abdomen: Normal bowel sounds, Soft, Non tender, Non distended - Derm Derm: Normal color, Warm and dry, No rash - Extremities Extremities: Other (Multiple varicose veins in both lower extremities, there is tender nodular varicosity behind the right knee, no palpable Snyder's cyst, no swelling or erythema. No calf pain or fullness. Moves legs without difficulty, no acute injuries.) - Neuro Neuro: Alert and oriented X 3, No motor deficit, No sensory deficit, Normal speech Eye Opening: Spontaneous Motor: Obeys Commands Verbal: Oriented GCS Score: 15 - Psych Psych: Normal mood, Normal affect Results - Vitals Vitals: Vital Signs - 24 hr 08/25/21 11:49 Temperature 36.2 C L Heart Rate 113 H Respiratory 20 Rate Blood Pressure 155/107 H O2 Saturation 96 Oxygen O2 Source Room air PD MEDICAL DECISION MAKING - ED course Complexity details: reviewed results, re-evaluated patient, considered differential, d/w patient ED course: Patient presented with right leg pain and concern for possible DVT. No other symptoms. We obtained an ultrasound which was reassuring, no signs of DVT. She does have a superficial palpable varicose vein that may be bothersome, but there is no signs of erythema or infection. She also has some effusion in the right knee though has a history of arthritis and I suspect that this is related to her chronic arthritis, I do not see any erythema or swelling of the knee to suggest infection. Patient advised on supportive measures for varicose veins or any mild thrombophlebitis, including cool or warm compress, ibuprofen and monitoring. Patient to follow-up with her primary care provider if no improvement next week, return to the ER if new or worsening symptoms, increased pain, erythema, swelling or other concerns. Departure - Departure Disposition: 01 Home, Self Care Clinical Impression: Pain of lower extremity Qualifiers: Laterality: right Qualified Code(s): M79.604 - Pain in right leg Condition: Good Instructions: ED Veins Varicose Comments: You presented with pain behind the right knee and a area of nodularity. We ultrasounded this area and there are no signs of blood clot or infection. You do have some fluid within the right knee joint and this is likely related to your arthritis. If the knee or area around the knee becomes red, swollen, you have increasing pain or other new concerns, return to the ER. Otherwise recommend a cool or warm compress to the area, you may take ibuprofen or Aleve for the discomfort. Please follow-up with your primary care provider in the next 1 to 2 weeks. Discharge Date/Time: 08/25/21 15:13
--- NOTE | 2021-08-25 14:58 | Ultrasound Report ---
PROCEDURE: Duplex Venous Limited INDICATIONS: r/o right leg dvt TECHNIQUE: Real-time imaging, as well as color and pulse Doppler interrogation, were performed of the lower extr emity deep veins from the inguinal ligament to the popliteal fossa. COMPARISON: None. FINDINGS: The deep veins are normally compressible, and free of intraluminal thrombus. Color and pu lse Doppler demonstrate normal phasic intraluminal flow. There is normal augmentation response to di stal compression maneuver. A right knee effusion is seen in the area of pain with nonspecific internal echoes. IMPRESSION: 1.No sonographic evidence of deep venous thrombosis in the right lower extremity. 2.Right knee joint effusion is seen with some internal echoes, which is nonspecific. Recommend correl ation with clinical findings. If indicated clinically, right knee MRI or CT could be obtained for fur ther evaluation. Reviewed by: Cecil Damon MD on 08/25/2021 2:57 PM PDT Approved by: Cecil Damon MD on 08/25/2021 2:57 PM PDT Station ID: [id number]
== END 2021-08-25 15:13 | disposition home or self-care (01) ==
LOC: ED 10:48
DX: M79.604 Pain in right leg (principal); M25.461 Effusion, right knee; I83.811 Varicose veins of right lower extremity with pain; I83.92 Asymptomatic varicose veins of left lower extremity
CPT/HCPCS: 93971; 99281; 99284

== ENCOUNTER 2021-11-05 10:12 | Outpatient (CLI) | payer MEDICARE, OTHER ==
--- NOTE | 2021-11-05 21:03 | XRAY Report ---
PROCEDURE: Foot 3 View RT INDICATIONS: PAINFUL R FOOT TECHNIQUE: 3 views of the foot were acquired. COMPARISON: Concurrent study of the right ankle. FINDINGS: Bones: No fractures or dislocations. There is mild degeneration of the interphalangeal joints. No s uspicious bony lesions. Visualized osseous structures appear osteopenic. Soft tissues: No tibiotalar joint effusion. Achilles tendon appears normal. IMPRESSION: 1. No fracture or dislocation. 2. Osteopenia. 3. Mild degeneration of the interphalangeal joints. Reviewed by: Isaiah Vicente MD on 11/05/2021 9:02 PM [facility] Approved by: Isaiah Vicente MD on 11/05/2021 9:02 PM [facility] Station ID: [id number]
--- NOTE | 2021-11-05 22:34 | XRAY Report ---
PROCEDURE: Ankle 3 View RT INDICATIONS: PAINFUL R ANKLE TECHNIQUE: 3 views of the ankle were acquired. COMPARISON: Concurrent study of the right foot. FINDINGS: Bones: No fractures or dislocations. Ankle mortise is normally aligned. No suspicious bony lesions . Visualized osseous structures appear osteopenic. Soft tissues: No tibiotalar joint effusion. Achilles tendon appears normal. IMPRESSION: 1. No acute bony abnormality. 2. Osteopenia of the visualized osseous structures. Reviewed by: Isaiah Vicente MD on 11/05/2021 10:33 PM [facility] Approved by: Isaiah Vicente MD on 11/05/2021 10:33 PM [facility] Station ID: [id number]
== END 2021-11-05 10:13 | disposition home or self-care (01) ==
LOC: DI 10:12
PROVIDERS: ATTEND Podiatrist
DX: M19.071 Primary osteoarthritis, right ankle and foot (principal); M85.871 Other specified disorders of bone density and structure, right ankle and foot

== ENCOUNTER 2021-12-08 11:19 | Outpatient (CLI) | payer MEDICARE, OTHER ==
--- NOTE | 2021-12-08 15:21 | XRAY Report ---
PROCEDURE: Pelvis 1 View, x-ray INDICATIONS: HIP PAIN TECHNIQUE: 1 view(s) of the pelvis acquired. COMPARISON: None. FINDINGS: Bones: No fractures or dislocations. No suspicious bony lesions. Moderate bilateral hip joint spac e narrowing with subchondral sclerosis. Both femoral heads have an appropriate to contour. Surgical c lips noted in the right hemipelvis appear moderate to fecal debris in the right colon. Soft tissues: Visualized bowel gas pattern is normal. No suspicious soft tissue calcifications. IMPRESSION: 1. Moderate to fecal debris in the right colon. 2. Moderate bilateral hip joint space narrowing Reviewed by: Benoit Marroquin MD on 12/08/2021 2:19 PM [facility] Approved by: Benoit Marroquin MD on 12/08/2021 2:19 PM [facility] Station ID: [id number]
--- NOTE | 2021-12-08 17:08 | XRAY Report ---
PROCEDURE: Lumbar Spine 2 View INDICATIONS: LUMBAR SPINE PAIN TECHNIQUE: 2 views of the lumbar spine were acquired. COMPARISON: None. FINDINGS: Bones: 5 [id number] vertebrae are present. Diffuse osteopenia. There is normal bony alignment. No acute vertebral body compression fractures. No suspicious bony lesions. Multilevel lumbar spon dylosis most pronounced from L3-4 through L5-S1. Moderate mid and lower lumbar facet arthropathy. Soft tissues: Overlying bowel gas pattern is normal. No suspicious soft tissue calcifications. Surg ical clip in the right lower quadrant likely from prior appendectomy. IMPRESSION: Lumbar spine without acute fracture or malalignment. Multilevel lumbar spondylosis and a ssociated facet arthropathy. Diffuse osteopenia. No acute compression fractures. Reviewed by: Matthew Fairchild MD on 12/08/2021 5:06 PM PST Approved by: Matthew Fairchild MD on 12/08/2021 5:06 PM PST Station ID: [id number]
== END 2021-12-08 11:20 | disposition home or self-care (01) ==
LOC: DI 11:19
PROVIDERS: ATTEND Internal Medicine Rheumatology
DX: M16.0 Bilateral primary osteoarthritis of hip (principal); M47.816 Spondylosis without myelopathy or radiculopathy, lumbar region; M85.88 Other specified disorders of bone density and structure, other site

== ENCOUNTER 2021-12-23 10:00 | Outpatient (CLI) | payer MEDICARE, OTHER ==
--- NOTE | 2021-12-23 11:03 | XRAY Report ---
PROCEDURE: Foot 3 View LT INDICATIONS: LT FT PX TECHNIQUE: 3 views of the foot were acquired. COMPARISON: None FINDINGS: Bones: No fractures or dislocations. No suspicious bony lesions. Generalized degenerative changes are seen, which are overall most prominent along the Lisfranc joint. A plantar calcaneal spur is incidentally noted. Toe alignment abnormalities can be seen. Soft tissues: No tibiotalar joint effusion. Achilles tendon appears normal. IMPRESSION: Generalized degenerative changes are seen, without an acute abnormality seen by plain film. Reviewed by: Ajith Cardona MD on 12/23/2021 10:02 AM [facility] Approved by: Ajith Cardona MD on 12/23/2021 10:02 AM [facility] Station ID: [id number]
== END 2021-12-23 10:01 | disposition home or self-care (01) ==
LOC: DI 10:00
PROVIDERS: ATTEND Podiatrist
DX: M19.072 Primary osteoarthritis, left ankle and foot (principal)

== ENCOUNTER 2022-07-01 05:58 | Emergency (ER) | payer MEDICARE, OTHER ==
[2022-07-01 06:14] LABS: BASOPHILS # (AUTO) 0.1 10^3/uL (0.0-0.1); BASOPHILS % (AUTO) 0.5 %; EOSINOPHILS % (AUTO) 0.3 %; HCT - HEMATOCRIT 40.3 % (37.0-47.0); HGB - HEMOGLOBIN 13.2 g/dL (12.0-16.0); LYMPHOCYTES # (AUTO) 1.3 10^3/uL (1.5-3.5); LYMPHOCYTES % (AUTO) 12.5 %; MEAN CORPUSCULAR HEMOGLOBIN 31.7 pg (27.0-31.0); MEAN CORPUSCULAR HGB CONC 32.8 g/dL (32.0-36.0); MEAN CORPUSCULAR VOLUME 96.6 fL (81.0-99.0); MEAN PLATELET VOLUME 9.3 fL (7.9-10.8); MONOCYTES % (AUTO) 9.4 %; NEUTROPHILS # (AUTO) 8.2 10^3/uL (1.5-6.6); PLT - PLATELET COUNT 269 10^3/uL (130-450); RED BLOOD COUNT 4.17 10^6/uL (4.20-5.40); RED CELL DISTRIBUTION WIDTH 13.2 % (12.0-15.0); WHITE BLOOD COUNT 10.6 x10^3/uL (4.8-10.8)
--- NOTE | 2022-07-01 06:22 | ED Physician Documentation ---
PD HPI CHEST PAIN - Stated complaint Stated Complaint: CHEST PAIN - Chief complaint Chief Complaint: Cardiac - History obtained from History obtained from: Patient - History of Present Illness Timing - onset: Enter time (21:00), Last night Timing - onset during: Rest Timing - details: Abrupt onset, Constant, Waxing and waning Pain level now: 8 Quality: Pain Location: Substernal, Right chest Radiation: Right upper extremity (right shoulder) Improved by: Nothing Worsened by: Inspiration Associated symptoms: No: Shortness of air, Diaphoresis, Nausea, Vomiting, Feelin g faint / dizzy, General Weakness, Palpitations, Cough Similar symptoms before: Diagnosis (patient says she has had similar pain before, attributed to esophageal spasms, but that it has never lasted nearly this long nor been this intense) - Additional information Additional information: c/o midline and right chest pain radiating to right shoulder, onset 9 PM last night. Constant but waxing and waning intensity. She was able to briefly sleep despite the pain not having completely resolved, but woke due to the pain becoming intense again. She says the pain is similar to many previous such episodes which she attributes to esophageal spasm, but previous episodes have never lasted nearly this long nor been this intense. Denies any h/o cardiac problems. Had negative nuclear stress test 2016. She says the pain is worse with deep breath in. In ROS, she says she has noticed LLE swelling x 2 weeks and her primary care provider is referring her for testing but that she has not had any tests yet regarding this swelling Review of Systems Constitutional: reports: Reviewed and negative Cardiac: reports: Chest pain / pressure, Pedal edema (LLE). 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 HEENT: Cataracts - Present Medications Home Medications: Ambulatory Orders Medication Instructions Recorded Confirmed Estradiol 0.5 mg PO DAILY 05/22/16 07/01/22 Sulfasalazine [Sulfazine] 1,500 mg PO BID 05/22/16 07/01/22 predniSONE [Prednisone] 5 mg PO BID 05/22/16 07/01/22 Oxybutynin [Ditropan] 5 mg PO BID 08/16/17 07/01/22 Ondansetron Odt [Zofran] 4 mg TL Q6H PRN #10 tablet 04/04/18 07/01/22 Magnesium 375 mg PO DAILY 07/01/22 07/01/22 Melatonin/Pyridoxine [Melatonin 5 1 each PO QPM 07/01/22 07/01/22 mg Tablet] Multivitamin 1 tab PO DAILY 07/01/22 07/01/22 - Allergies Allergies/Adverse Reactions: Allergies Allergy/AdvReac Type Severity Reaction Status Date / Time codeine Allergy Nausea Verified 07/01/22 06:10 metoclopramide HCl * Allergy Nausea Verified 07/01/22 06:10 [From Reglan] prochlorperazine Allergy Nausea Verified 07/01/22 06:10 [From Compazine] prochlorperazine edisylate * Allergy Nausea Verified 07/01/22 06:10 [From Compazine] prochlorperazine maleate * Allergy Nausea Verified 07/01/22 06:10 [From Compazine] Sugars, Metabolically Active AdvReac Headache Verified 07/01/22 06:10 - Social History Does the pt smoke?: No Smoking Status: Never smoker Does the pt drink ETOH?: No Does the pt have substance abuse?: No - Immunizations Immunizations are current?: Yes - POLST Patient has POLST: No PD ED PE NORMAL - Vitals Vital signs reviewed: Yes - General General: Alert and oriented X 3, No acute distress, Well developed/nourished - HEENT HEENT: Moist mucous membranes - Neck Neck: Supple, no meningeal sign - Cardiac Cardiac: RRR, No murmur, No gallop, No rub - Respiratory Respiratory: No respiratory distress, Clear bilaterally - Abdomen Abdomen: Soft, Non tender - Derm Derm: Normal color, Warm and dry - Extremities Extremities: Other (trace left ankle edema, nonpitting) - Neuro Neuro: Alert and oriented X 3 Results - Vitals Vitals: Oxygen O2 Source Room air - EKG (time done) No standard instances Rate: Rate (enter#) (106) Rhythm: Sinus tachycardia [place]: LAD Intervals: Normal CO QRS: Normal Ischemia: Q waves (V1-V3), Non specific changes (ST elevation limited to V2) Compare to prior EKG: Old EKG unavailable - Labs Labs: Laboratory Tests 07/01/22 07/01/22 07/01/22 06:07 06:07 06:07 WBC 10.6 RBC 4.17 L Hgb 13.2 Hct 40.3 MCV 96.6 MCH 31.7 H MCHC 32.8 RDW 13.2 Plt Count 269 MPV 9.3 Neut # (Auto) 8.2 H Lymph # (Auto) 1.3 L [place] # (Auto) 1.0 Eos # (Auto) 0.0 Baso # (Auto) 0.1 Absolute Nucleated RBC 0.00 Nucleated RBC % 0.0 Sodium 136 Potassium 3.8 Chloride 97 L Carbon Dioxide 29 Anion Gap 10.0 BUN 13 Creatinine 0.7 Estimated GFR (MDRD) 81 L Glucose 128 H Calcium 10.9 H Total Bilirubin 0.8 AST 35 ALT 40 Alkaline Phosphatase 89 Troponin I High Sens 10.2 Total Protein 8.1 Albumin 5.1 Globulin 3.0 Albumin/Globulin Ratio 1.7 Lipase 35 07/01/22 08:55 WBC RBC Hgb Hct MCV MCH MCHC RDW Plt Count MPV Neut # (Auto) Lymph # (Auto) [place] # (Auto) Eos # (Auto) Baso # (Auto) Absolute Nucleated RBC Nucleated RBC % Sodium Potassium Chloride Carbon Dioxide Anion Gap BUN Creatinine Estimated GFR (MDRD) Glucose Calcium Total Bilirubin AST ALT Alkaline Phosphatase Troponin I High Sens 10.9 Total Protein Albumin Globulin Albumin/Globulin Ratio Lipase - Rads (name of study) chest xray Radiology: Prelim report reviewed, See rad report PD MEDICAL DECISION MAKING - ED course Complexity details: reviewed old records, reviewed results, re-evaluated patient, considered differential, d/w patient ED course: presents with chest pain since 9 PM last night. she says she does not have any cardiac history. Her EKG has Q waves V1-V3 but no previous EKG is available in [facility] for comparative purposes. There is slight ST elevation but this is only in V2 and thus without ST elevation in two or more contiguous leads, EKG is not c/w STEMI. Her initial blood tests are unremarkable including hs-cTn, and unremarkable CXR. Given that she notes atraumatic LLE swelling x 2 weeks that has not been evaluated (specifically with ultrasound for DVT), and that her chest pain is pleuritic, I ordered at CTA chest as well as LLE doppler US. These tests are pending when my shift ended and thus care of patient turned over to oncoming ED physician Departure - Departure Disposition: 01 Home, Self Care Clinical Impression: Atypical chest pain, Leg swelling Instructions: ED Chest Pain Atypical Unkn Cause Comments: Thank you for allowing us to care for you today at [facility]. Today in the emergency department you were evaluated for any possible life- threatening medical emergency. All of the testing performed here in the emergency department including your EKG, the imaging of your chest, the ultrasound of your leg, and your blood work are all very reassuring. No life-threatening cause for your symptoms was identified however will be important for you to follow-up carefully with your primary care doctor for further testing. If it anytime your symptoms return or worsen please return to the emergency department immediately for further evaluation. Discharge Date/Time: 07/01/22 11:19
[2022-07-01 06:27] LABS: ALBUMIN 5.1 g/dL (3.2-5.5); ALBUMIN/GLOBULIN RATIO 1.7 (1.0-2.2); BILIRUBIN,TOTAL 0.8 mg/dL (0.2-1.0); CALCIUM 10.9 mg/dL (8.5-10.3); CREATININE 0.7 mg/dL (0.4-1.0); POTASSIUM 3.8 mmol/L (3.5-5.0); TOTAL PROTEIN 8.1 g/dL (6.7-8.2)
--- NOTE | 2022-07-01 08:24 | CT Report ---
PROCEDURE: ANGIO CHEST W/WO INDICATIONS: chest pain, leg swelling CONTRAST: IV CONTRAST: Optiray 320 ml: 80 PO CONTRAST: *NO PO CONTRAST TECHNIQUE: After the administration of intravenous contrast, 2 mm axial images were acquired from the pulmonary apices to the posterior costophrenic angles during the arterial phase. In addition, 1 mm lung kernel and 5 mm soft tissue kernel reconstructions were performed. 3-dimensional coronal oblique maximum int ensity projection (MIP) reformats, 8 mm axial MIP, and 5 mm coronal and sagittal MPR reformats were t hen performed through the thorax. For radiation dose reduction, the following was used: automated exp osure control, adjustment of mA and/or kV according to patient size. COMPARISON: Correlation is made with chest radiograph, 07/01/2022 FINDINGS: Image quality: Excellent. Pulmonary arteries: Pulmonary arteries are normal in size, and demonstrate no intraluminal filling d efects to suggest central pulmonary embolism. Lungs and pleura: Mild age-appropriate apical pleural scarring can be seen. No focal infiltrates are seen. There is mild dependent atelectasis seen. No pleural effusions or pneumothorax. Central and peripheral airways are patent. Mediastinum: Heart size is normal, without pericardial effusion. No mediastinal or hilar adenopathy . Thoracic aorta is normal in caliber and enhancement. Esophagus is normal in caliber, without hiat al hernia. Bones and chest wall: No suspicious bony lesions. Ribs and thoracic spine appear intact throughout. Age-appropriate degenerative changes are seen. There is accentuated thoracic kyphosis. Mild levoc onvex scoliotic curvature is seen. No axillary or supraclavicular adenopathy. The thyroid is meghan l in size and there are no incidental findings. Abdomen: Visualized upper abdominal solid organs appear normal in the early arterial phase of enhanc ement. IMPRESSION: Negative for pulmonary embolism. Reviewed by: Ajith Cardona MD on 07/01/2022 7:23 AM [facility] Approved by: Ajith Cardona MD on 07/01/2022 7:23 AM [facility] Station ID: [id number]
--- NOTE | 2022-07-01 08:25 | XRAY Report ---
PROCEDURE: Chest 1 View X-Ray INDICATIONS: chest pain TECHNIQUE: One view of the chest was acquired. COMPARISON: Correlation is made with the subsequently performed chest CT, 06/23/2022. FINDINGS: Surgical changes and devices: None. Lungs and pleura: No pleural effusions or pneumothorax. Lungs are clear. Mediastinum: Mediastinal contours appear normal. Heart size is normal. Bones and chest wall: No suspicious bony lesions. Age-appropriate degenerative changes are seen. Overlying soft tissues appear unremarkable. IMPRESSION: Normal chest plain film for age. Note: No significant discrepancy from the preliminary report. Reviewed by: Ajith Cardona MD on 07/01/2022 7:24 AM [facility] Approved by: Ajith Cardona MD on 07/01/2022 7:24 AM [facility] Station ID: [id number]
[2022-07-01 09:41] VITALS: BP 161/77
--- NOTE | 2022-07-01 10:16 | Ultrasound Report ---
PROCEDURE: Duplex Ext Veins Left INDICATIONS: atraumatic LLE swelling x 2 weeks TECHNIQUE: Real-time imaging, as well as color and pulse Doppler interrogation, were performed of the lower extr emity deep veins from the inguinal ligament to the popliteal fossa. COMPARISON: None. FINDINGS: The deep veins are normally compressible, and free of intraluminal thrombus. Color and pu lse Doppler demonstrate normal phasic intraluminal flow. There is normal augmentation response to di stal compression maneuver. 30 mm anechoic focus within the anterior left knee. IMPRESSION: 1. No evidence of left lower extremity DVT. 2. Prepatellar bursitis. Reviewed by: Janae aDvila MD on 07/01/2022 10:15 AM PDT Approved by: Janae Davila MD on 07/01/2022 10:15 AM PDT Station ID: [id number]
--- NOTE | 2022-07-01 11:02 | ED Physician Documentation ---
ED Addendum - Addendum Addendum: Patient received a signout from off going physician, please see their documentation for further detail. CTA chest and ultrasonography of leg reviewed. No indications DVT or pulmonary emboli. Serial troponins here in the ED are negative. At this time certain etiology for the patient's symptoms is unsure however there does not appear to be any life-threatening cause at this time. Will discharge with instructions for careful follow-up with primary care. Otherwise clear return precautions given prior to discharge. 07/01/22 11:01
== END 2022-07-01 11:19 | disposition home or self-care (01) ==
LOC: ED 05:58
DX: R07.9 Chest pain, unspecified (principal); M79.89 Other specified soft tissue disorders
CPT/HCPCS: 36415; 71045; 71275; 80053; 83690; 84484; 85025; 93005; 93971; 99284; Q9967

== ENCOUNTER 2022-09-11 09:41 | Outpatient (CLI) | payer MEDICARE, OTHER ==
--- NOTE | 2022-09-11 13:33 | DEXA Report ---
PROCEDURE: Dexa Spine and/or Hip INDICATIONS: OSTEOPOROSIS TECHNIQUE: Dual energy x-ray absorptiometry (DXA) was performed on a Applifier System. Regions measur ed are the AP Spine, femoral neck, and if needed forearm. COMPARISON: None. FINDINGS: Lumbar Spine: Bone Mineral Density 1.079 g/cm/cm,T score -0.8, normal Left total Hip: Bone Mineral Density 0.879 g/cm/cm,T score -1.0, normal Left Femoral Neck: Bone Mineral Density 0.816 g/cm/cm, T score -1.6, osteopenia (T score greater or equal to -1.0: NORMAL) (T score from -1.1 to -2.4: OSTEOPENIA) (T score less than or equal to -2.5 to: OSTEOPOROSIS) IMPRESSION: Osteopenia. Patients with diagnosis of osteoporosis or osteopenia should have regular bone mineral density assess ment. For those eligible for Medicare, routine testing is allowed once every 2 years. Testing frequ ency can be increased for patients who have rapidly progressing disease or for those who are receivin g medical therapy to restore bone mass. Reviewed by: Angelo Ashley on 09/11/2022 1:32 PM PST Approved by: Angelo Ashley on 09/11/2022 1:32 PM PST Station ID: [id number]
== END 2022-09-11 09:42 | disposition home or self-care (01) ==
LOC: DI 09:41
PROVIDERS: ATTEND Internal Medicine Rheumatology
DX: M85.88 Other specified disorders of bone density and structure, other site (principal)

== ENCOUNTER 2023-04-10 17:00 | Outpatient (CLI) | payer MEDICARE, OTHER ==
--- NOTE | 2023-04-11 08:12 | MRI Report ---
PROCEDURE: FEMUR/THIGH WO - RT INDICATIONS: ELEVATED CPK, MYALGIA TECHNIQUE: Noncontrast coronal and sagittal T1 spin echo and STIR; axial T1 spin echo and T2 fast spin echo with fat saturation through the right.. COMPARISON: None. FINDINGS: Image quality: Excellent. Bones: The visualized bone marrow demonstrates normal signal on all sequences. The overlying cortex appears intact. No fractures lines or intra-osseous lesions. Soft tissues: The scanned muscles demonstrate normal overall bulk and internal signal. Subcutaneous tissues appear normal as well. No soft tissue masses are present. 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 T here is a small amount of fluid lateral to the greater trochanter of the right proximal femur. There are venous varices within the posterior lateral aspect of the distal thigh. IMPRESSION: 1. No evidence of myositis. 2. Negative evaluation of the osseous structures. 3. Venous varices. 4. Snyder's cyst. Reviewed by: Janae Davila MD on 04/11/2023 8:11 AM PDT Approved by: Janae Davila MD on 04/11/2023 8:11 AM PDT Station ID: [id number]
== END 2023-04-10 17:01 | disposition home or self-care (01) ==
LOC: DI 17:00
PROVIDERS: ATTEND Internal Medicine Rheumatology
DX: R74.8 Abnormal levels of other serum enzymes (principal); M79.10 Myalgia, unspecified site; I86.8 Varicose veins of other specified sites; M71.21 Synovial cyst of popliteal space [Baker], right knee

== ENCOUNTER 2023-06-07 10:06 | Outpatient (CLI) | payer MEDICARE, OTHER ==
--- NOTE | 2023-06-07 12:18 | MRI Report ---
PROCEDURE: SHOULDER WO - LT INDICATIONS: LEFT SHOULDER PAIN TECHNIQUE: Noncontrast oblique coronal T2 fast spin echo with fat saturation, oblique sagittal T1 spin echo and T2 fast spin echo with fat saturation, axial T1 spin echo and T2 fast spin echo with fat saturation t hrough the shoulder. COMPARISON: Shoulder radiograph dated 05/23/2023. FINDINGS: Image quality: Excellent. Rotator cuff: Low to moderate grade articular and bursal surface partial-thickness tear involving dis sheryl supraspinatus at its insertion on humeral head is seen extending to muscular tendinous junction. Distal infraspinatus and subscapularis tendinosis is seen. No full-thickness rotator cuff tendon rupt ure.. Mild supraspinatus muscle atrophy is seen on sagittal images. Bones and bursae: No bone marrow contusions or fractures. Moderate acromioclavicular joint osteoarth ritic changes are seen with joint space narrowing, subchondral sclerosis and downward osteophyte form ation depressing on musculotendinous junction of supraspinatus. Small amount of subacromial subdeltoi d bursal fluid is noted. No gross loose bodies. Capsule and soft tissues: Signal abnormality and contour irregularity involving superior anterior lab rum at 12 to 2:00 position is seen suggestive of superior anterior labral tear. The long head of the biceps tendon is thickened with intrasubstance T2 hyperintense signal. The rotator interval appears normal, without fibrosis. The coracohumeral ligament is normal in thickness. IMPRESSION: 1. Low to moderate grade articular and bursal surface partial-thickness tear involving distal suprasp inatus extending to muscular tendinous junction. Distal infraspinatus and subscapularis tendinosis. N o full-thickness rotator cuff tendon rupture.Mild supraspinatus muscle atrophy. 2. Moderate acromioclavicular joint osseous arthritis. No fracture or dislocation. Small amount of warner bacromial subdeltoid bursal fluid. 3. Suggestion of superior anterior labral tear at 12 to 1:00 position. 4. Low-grade intrasubstance partial thickness tear involving proximal long head of biceps. Reviewed by: Xavier Tran MD on 06/07/2023 12:16 PM PDT Approved by: Xavier Tran MD on 06/07/2023 12:16 PM PDT Station ID: [id number]
== END 2023-06-07 10:07 | disposition home or self-care (01) ==
LOC: DI 10:06
PROVIDERS: ATTEND Internal Medicine Rheumatology
DX: S46.012A Strain of muscle(s) and tendon(s) of the rotator cuff of left shoulder, initial encounter (principal); M75.92 Shoulder lesion, unspecified, left shoulder; M19.012 Primary osteoarthritis, left shoulder; S43.432A Superior glenoid labrum lesion of left shoulder, initial encounter; S46.112A Strain of muscle, fascia and tendon of long head of biceps, left arm, initial encounter

== ENCOUNTER 2023-06-27 19:44 | Emergency (ER) | payer MEDICARE, OTHER ==
[2023-06-27 19:59] VITALS: BP 196/87; O2SAT 96
[2023-06-27] MEDS ORDERED: TETANUS/DIPHTHERIA/PERTUSSIS 0.5 ML SYRINGE IM ONE (20:07)
--- NOTE | 2023-06-27 20:30 | ED Physician Documentation ---
PD HPI SKIN - Stated complaint Stated Complaint: RT HAND INJ - Chief complaint Chief Complaint: Laceration - History obtained from History obtained from: Patient - Additional information Additional information: 82yF p/w avulsion injury of R hand. She fell while holding multiple objects and cut her hand on scissors. patient is R handed. last tdap 11 years ago PD PAST MEDICAL HISTORY - Past Medical History Cardiovascular: Other Respiratory: None Endocrine/Autoimmune: HyPOthyroidism GI: None : Other HEENT: None Psych: None Musculoskeletal: Osteoarthritis Derm: None - Past Surgical History Past Surgical History: Yes General: Appendectomy /[employer]ER: Hysterectomy HEENT: Cataracts - Present Medications Home Medications: Ambulatory Orders Medication Instructions Recorded Confirmed Estradiol 0.5 mg PO DAILY 05/22/16 07/01/22 Sulfasalazine [Sulfazine] 1,500 mg PO BID 05/22/16 07/01/22 Oxybutynin [Ditropan] 5 mg PO BID 08/16/17 07/01/22 Ondansetron Odt [Zofran] 4 mg TL Q6H PRN #10 tablet 04/04/18 07/01/22 Magnesium 375 mg PO DAILY 07/01/22 07/01/22 Melatonin/Pyridoxine [Melatonin 5 1 each PO QPM 07/01/22 07/01/22 mg Tablet] Multivitamin 1 tab PO DAILY 07/01/22 07/01/22 - Allergies Allergies/Adverse Reactions: Allergies Allergy/AdvReac Type Severity Reaction Status Date / Time codeine Allergy Nausea Verified 06/27/23 19:53 metoclopramide HCl * Allergy Nausea Verified 06/27/23 19:53 [From Reglan] prochlorperazine Allergy Nausea Verified 06/27/23 19:53 [From Compazine] prochlorperazine edisylate * Allergy Nausea Verified 06/27/23 19:53 [From Compazine] prochlorperazine maleate * Allergy Nausea Verified 06/27/23 19:53 [From Compazine] Sugars, Metabolically Active AdvReac Headache Verified 06/27/23 19:53 - Social History Does the pt smoke?: No Smoking Status: Never smoker Does the pt drink ETOH?: No Does the pt have substance abuse?: No - Immunizations Immunizations are current?: Yes - POLST Patient has POLST: No PD ED PE NORMAL - Vitals Vital signs reviewed: Yes - General General: Alert and oriented X 3, No acute distress, Well developed/nourished - HEENT HEENT: Atraumatic, PERRL, EOMI - Derm Derm: Normal color, Warm and dry, Other (1cm triangular lac to R dorsum of hand) Results - Vitals Vitals: Vital Signs - 24 hr 06/27/23 19:47 Temperature 37.0 C Heart Rate 110 H Respiratory 18 Rate Blood Pressure 196/87 H O2 Saturation 96 Oxygen O2 Source Room air Procedures - Laceration (location) Hand right Dorsal Length in cm: 1 Wound type: Linear Neurovascular status: Sensory intact, Motor intact, Vascular intact Anesthesia: Lidocaine 1% Wound preparation: Irrigated copiously NS, Wound explored, Multiple flaps aligned Skin layer closure: Steri strips Other: Patient tolerated well, No complications, Neurovascular intact, Dressing applied, Tetanus booster given PD Medical Decision Making - ED course ED course: 82yF presents with lac to R hand, repaired with steri strips given torn skin. tdap updated. Return precautions given . Plan to f/u routinely with pcp. Departure - Departure Disposition: 01 Home, Self Care Clinical Impression: Laceration Condition: Stable Instructions: ED Laceration All Comments: You were seen in the emergency department for a cut on the hand. The skin was torn and repaired with steristrips which should remain in place until they fall off on their own. The bandaid can be changed daily after 48 hours. Please keep the area clean and dry for at least 48 hours, ideally for a few days. Please follow-up with your primary care provider and return to the emergency department if you have any new or worsening symptoms or other concerns.
== END 2023-06-27 20:37 | disposition home or self-care (01) ==
LOC: ED 19:44
DX: S61.411A Laceration without foreign body of right hand, initial encounter (principal); W19.XXXA Unspecified fall, initial encounter; W27.2XXA Contact with scissors, initial encounter
CPT/HCPCS: 90471; 99282; 99283

== ENCOUNTER 2023-08-04 12:52 | Emergency (ER) | payer MEDICARE, OTHER ==
--- NOTE | 2023-08-04 14:11 | XRAY Report ---
PROCEDURE: Wrist 4 View LT INDICATIONS: Trauma TECHNIQUE: 4 views of the wrist were acquired. COMPARISON: None. FINDINGS: Bones: Comminuted fracture of the distal radius with intra-articular extension, mild displacement an d impaction with mild dorsal attenuation of the distal fracture fragment. Widening of the distal radi al ulnar syndesmosis. Diffusely decreased osseous mineralization. Osteoarthritic changes of the first carpometacarpal joint. Soft tissues: No suspicious soft tissue calcifications or masses. IMPRESSION: Distal radial fracture with widening of the distal radial ulnar syndesmosis. Reviewed by: Bryson Ivy MD on 08/04/2023 2:10 PM PDT Approved by: Bryson Ivy MD on 08/04/2023 2:10 PM PDT Station ID: [id number]
[2023-08-04] MEDS: HYDROmorphone 1 MG/ML CARPUJECT IM STA (15:23)
--- NOTE | 2023-08-04 15:32 | ED Physician Documentation ---
History of Present Illness - Stated complaint Stated Complaint: LT WRIST INJ - Chief complaint Chief Complaint: Trauma Ext - Additonal information Additional information: 82-year-old female presents to the emergency department for evaluation of acute left wrist and shoulder pain. She was working in her garden when she stepped up onto steps lost her balance and fell onto an outstretched hand. She has obvious deformity to the ulnar side of her wrist. [id number]. No open sores or lesions. Reports increasing left shoulder pain. Has a history of a rotator cuff tear in the shoulder. 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 HEENT: Cataracts - Present Medications Home Medications: Ambulatory Orders Medication Instructions Recorded Confirmed Estradiol 0.5 mg PO DAILY 05/22/16 07/01/22 Sulfasalazine [Sulfazine] 1,500 mg PO BID 05/22/16 07/01/22 Oxybutynin [Ditropan] 5 mg PO BID 08/16/17 07/01/22 Ondansetron Odt [Zofran] 4 mg TL Q6H PRN #10 tablet 04/04/18 07/01/22 Magnesium 375 mg PO DAILY 07/01/22 07/01/22 Melatonin/Pyridoxine [Melatonin 5 1 each PO QPM 07/01/22 07/01/22 mg Tablet] Multivitamin 1 tab PO DAILY 07/01/22 07/01/22 oxyCODONE [Roxicodone] 5 mg PO BID #15 tablet 08/04/23 - Allergies Allergies/Adverse Reactions: Allergies Allergy/AdvReac Type Severity Reaction Status Date / Time codeine Allergy Nausea Verified 06/27/23 19:53 metoclopramide HCl * Allergy Nausea Verified 06/27/23 19:53 [From Reglan] prochlorperazine Allergy Nausea Verified 06/27/23 19:53 [From Compazine] prochlorperazine edisylate * Allergy Nausea Verified 06/27/23 19:53 [From Compazine] prochlorperazine maleate * Allergy Nausea Verified 06/27/23 19:53 [From Compazine] indomethacin AdvReac Rash Verified 08/04/23 13:13 Sugars, Metabolically Active AdvReac Headache Verified 06/27/23 19:53 - Social History Does the pt smoke?: No Smoking Status: Never smoker Does the pt drink ETOH?: No Does the pt have substance abuse?: No - Immunizations Immunizations are current?: Yes - POLST Patient has POLST: No PD ED PE EXPANDED - General General: Alert, No acute distress - Cardiac Cardiac: Regular Rate, Radial strong equal, Pedal strong equal - Respiratory Respiratory: Clear to ausultation elvia, Other (No tenderness elicited with the thorax palpation). No: Distress, Labored - Extremities Extremities: Left shoulder (Tender to move. No obvious deformity ecchymosis or shortening of the shoulder.), Left wrist (Swelling and ecchymosis and deformity on the ulnar side of the wrist. Neurovascular intact otherwise.) Results - Vitals Vitals: Vital Signs - 24 hr 08/04/23 13:13 Temperature 36.7 C Heart Rate 76 Respiratory 16 Rate Blood Pressure 140/57 H O2 Saturation 96 Oxygen O2 Source Room air - Rads (name of study) left wrist xr Relevant Findings:: Final report received (Distal radial fracture with widening of the distal radial ulnar syndesmosis) left shoulder Relevant Findings:: Final report received, EMP independent interpretation of test (no x) cxr Relevant Findings:: EMP independent interpretation of test (no acute cardiopulmonaru process) PD Medical Decision Making - ED course Complexity details: reviewed results, re-evaluated patient, d/w patient ED course: 82-year-old female is brought to the emergency department for evaluation of acute left wrist and shoulder pain. She had a mechanical fall in her garden falling onto an outstretched hand. On presentation she has obvious deformity to the left wrist Ulnar side. And x-rays confirm by the radiologist shows a distal radial fracture with widening of the radial ulnar syndesmosis. Patient was splinted which markedly improved her pain. She will be provided a sling for comfort. But given the joint disruption she may require surgical reduction as such will require referral from PCP. My interpretation of her x-ray and I recommended Tylenol Motrin for analgesia with limited amount of oxycodone. I am prescribing a short course of short-acting opioid pain medication for this patient. 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 I have discussed that the opioids are for short term therapy only, and will not be refilled from the ED. Departure - Departure Disposition: 01 Home, Self Care Clinical Impression: Closed left radial fracture Qualifiers: Encounter type: initial encounter Radius location: distal Fracture morphology: other extra-articular Qualified Code(s): S52.552A - Other extraarticular fracture of lower end of left radius, initial encounter for closed fracture Condition: Stable Record reviewed to determine appropriate education?: Yes Instructions: ED Fx Forearm Radius Ulna Redu Requ, ED Splint Care Fiberglass Follow-Up: Harish Montesinos MD [Primary Care Provider] - Prescriptions: oxyCODONE [Roxicodone] 5 mg PO BID #15 tablet Comments: Renetta you had a fall in your garden today. The x-ray of your wrist shows a distal radial fracture. However there is some widening of the joint between the ulna and the carpal bones. This is something that may likely require reduction in OR. Please call Dr. Montesinos's office tomorrow to request an urgent referral to orthop edics. I would like you to be seen within the next week. In general you can wear the sling for comfort but you should move your shoulder as you do not want to get a frozen shoulder. Your splint cannot get wet. If it gets wet return to the ER to have it replaced. In general take Tylenol and ibuprofen for discomfort. For more severe pain a limited amount of oxycodone has been sent to the [facility] pharmacy. Return immediately to the ER if you are having worsening pain, fevers, numbness in your hands or feel that the splint is not fitting appropriately. I am prescribing a short course of narcotic pain medication for you. These are potentially dangerous and addictive medications that should be used carefully. These medications may constipate you. Take an [id number] stool softener (docusate) twice daily with plenty of water while taking these medications. If you go 24 hours without a bowel movement, take [id number] miralax, per package instructions. Do not drink or drive while taking these medications. If you received narcotic or sedating medications while in the emergency department, do not drive for 24 hours. Store this medication in a safe, secure place and out of reach of children. It is a violation of federal law to give or sell this medication to another person or to use in a manner other than prescribed. The ED will not refill narcotic prescriptions, including prescriptions lost or stolen. To dispose of unwanted medications: 1. [facility] [address] in [place] has a medication drop box. They accept prescription medications (in pill form) Saturday through Saturday 9:00 a.m. to 5:00 p.m. 2. The [facility] [employer] accepts prescription medications (in pill form only) for disposal year round. Call for more information. 3. Contact the [facility] for the next [facility] sponsored prescription drug collection event. , [phone], or [phone]; Note that many narcotic pain relievers also contain Tylenol/acetaminophen. Please ensure that your total dose of acetaminophen from all sources does not exceed 3 g (3000 mg) per day. Forms: PCP List
[2023-08-04 16:19] VITALS: BP 192/76; O2SAT 97
--- NOTE | 2023-08-04 16:26 | XRAY Report ---
PROCEDURE: Chest 1 View X-Ray INDICATIONS: chest pain TECHNIQUE: One view of the chest was acquired. COMPARISON: Chest x-ray 06/23/2022. FINDINGS: Surgical changes and devices: None. Lungs and pleura: No pleural effusions or pneumothorax. Lungs are clear. Mediastinum: Mediastinal contours appear normal. Heart size is normal. Bones and chest wall: No suspicious bony lesions. Overlying soft tissues appear unremarkable. IMPRESSION: No acute cardiopulmonary process. Reviewed by: Bryson Ivy MD on 08/04/2023 4:25 PM PDT Approved by: Bryson Ivy MD on 08/04/2023 4:25 PM PDT Station ID: [id number]
--- NOTE | 2023-08-04 16:27 | XRAY Report ---
PROCEDURE: Shoulder 3 View LT INDICATIONS: paina fter fall TECHNIQUE: 3 views of the shoulder were acquired. COMPARISON: X-ray left shoulder 05/23/2023 FINDINGS: Bones: No fractures or dislocations. Moderate degenerative changes of the acromioclavicular and jacque ohumeral joints. No suspicious bony lesions. Visualized ribs appear intact. Soft tissues: No suspicious soft tissue calcifications. The visualized lungs are within normal limi ts. IMPRESSION: No acute fracture or dislocation. Redemonstration of degenerative changes. Reviewed by: Bryson Ivy MD on 08/04/2023 4:26 PM PDT Approved by: Bryson Ivy MD on 08/04/2023 4:26 PM PDT Station ID: [id number]
== END 2023-08-04 16:47 | disposition home or self-care (01) ==
LOC: ED 12:52
DX: S52.552A Other extraarticular fracture of lower end of left radius, initial encounter for closed fracture (principal); W18.30XA Fall on same level, unspecified, initial encounter; Y93.H2 Activity, gardening and landscaping; Y92.007 Garden or yard of unspecified non-institutional (private) residence as the place of occurrence of the external cause; E03.9 Hypothyroidism, unspecified; Z79.899 Other long term (current) drug therapy
CPT/HCPCS: 96372; 99283; 99284